=== PATIENT | male | born 1980 ===

== ENCOUNTER 2019-01-28 12:28 | Emergency (ER) | payer OTHER ==
[~2019-01-28] VITALS: Ht 175.3 cm; Wt 131.5 kg
[2019-01-28 12:44] VITALS: BP 161/56
[2019-01-28 12:45] VITALS: BP 161/56
[2019-01-28 12:46] VITALS: BP 161/56
--- NOTE | 2019-01-28 12:48 | NUR ---
ARRIVAL PATIENT ARRIVED TO ED7 VIA W/C WITH FAMILY, C/O OF LEFT GROIN PAIN TODAY, PATIENT STATES HE WOKE UP FROM A NAP AND STRETCHED AND FELT A POP, PAIN PERSISTED, WENT BACK TO SLEEP AND WHEN HE WOKE UP THE PAIN WAS WORSE, CAME TO THE ED FOR EVAL.
[2019-01-28] MEDS ORDERED: LACTATED RINGERS 1,000 ML IV STA (12:55)
[2019-01-28] MEDS ORDERED: TORADOL IV STA (12:55)
[2019-01-28] MEDS ORDERED: TYLENOL PO STA (12:55)
--- NOTE | 2019-01-28 13:00 | ER.PDOC ---
General Chief Complaint: Extremities Stated Complaint: LEFT GROIN INJURY Time seen by MD: 12:58 Source: patient Exam Limitations: no limitations History of Present Illness Initial Comments Left groin pain since this morning after he stretched. No fall. Severity/Quality: moderate Radiation: no radiation Associated Symptoms: denies symptoms Exacerbated by: nothing Relieved By: nothing Allergies: Coded Allergies: No Known Allergies (Unverified , 11/09/13) Home Meds No Active Prescriptions or Reported Meds Vital Signs First Vital Signs Date Time Temp Pulse Resp B/P (MAP) Pulse Ox O2 Delivery O2 Flow Rate FiO2 01/28/19 12:44 100.5 126 18 95 Room Air 01/28/19 12:46 161/56 (91) Last Vital Signs Date Time Temp Pulse Resp B/P (MAP) Pulse Ox O2 Delivery O2 Flow Rate FiO2 01/28/19 12:46 100.5 126 18 161/56 (91) 95 Room Air Past Medical History Medical History: no pertinent history Surgical History: no surgical history Social History Smoking: non-smoker Alcohol Use: none Drug Use: none Constitutional: no symptoms reported Respiratory: no symptoms reported Cardiovascular: no symptoms reported Gastrointestinal: no symptoms reported Genitourinary: no symptoms reported Musculoskeletal: see HPI All Other Systems: Reviewed and Negative Physical Exam General Appearance: No Apparent Distress, WD/WN, Obese Neck: Non-Tender, Full Range of Motion, Supple, Normal Inspection Respiratory: chest non-tender, lungs clear, normal breath sounds, no respiratory distress, no accessory muscle use Cardiovascular: Normal Peripheral Pulses, Regular Rate, Rhythm, No Edema, No Gallop, No JVD, No Murmur, Tachycardia Gastrointestinal: Normal Bowel Sounds, No Organomegaly, No Pulsatile Mass, Guarding, Tenderness (left inguinal area, no redness or erytherma) Back: Normal Inspection, No CVA Tenderness, No Vertebral Tenderness Extremities: Normal Range of Motion, Non-Tender, Normal Inspection, No Pedal Edema, No Calf Tenderness, Normal Capillary Refill, Pelvis Stable Neurologic/Psychiatric: condenser setter II-XII NML as Tested, No Motor/Sensory Deficits, Alert, Normal Mood/Affect, Oriented x 3 Skin: Normal Color, Warm/Dry Results/Orders Results/Orders Orders - ROSE TRIVEDI MD Cbc With Auto Diff (01/28/19 12:55) Comprehensive Metabolic Panel (01/28/19 12:55) Ct Abd/Pel With Iv Contrast (01/28/19 12:55) Urinalysis (01/28/19 12:55) Blood Culture (01/28/19 12:55) Lactic Acid(Ml) (01/28/19 12:55) Ketorolac Tromethamine (Toradol) (01/28/19 12:55) Ringer's Solution,Lactated (Lactated Rin (01/28/19 12:55) Acetaminophen (Tylenol) (01/28/19 12:55) Ringer's Solution,Lactated (Lactated Rin (01/28/19 13:16) Acetaminophen (Tylenol) (01/28/19 13:16) Ketorolac Tromethamine (Toradol) (01/28/19 13:16) Urine Culture (01/28/19 13:11) Vital Signs Date Time Temp Pulse Resp B/P (MAP) Pulse Ox O2 Delivery O2 Flow Rate FiO2 01/28/19 12:46 100.5 126 18 161/56 (91) 95 Room Air 01/28/19 12:45 100.6 126 18 01/28/19 12:44 100.5 126 18 95 Room Air Administered Medications Medications (Trade) Dose Ordered Sig/Orly Route PRN Reason Start Time Stop Time Status Last Admin Dose Admin Acetaminophen (Tylenol) 1,000 mg STAT STAT PO 01/28/19 12:55 01/28/19 12:58 DC 01/28/19 13:38 1,000 MG Ketorolac Tromethamine (Toradol) 30 mg STAT STAT IV 01/28/19 12:55 01/28/19 12:58 DC 01/28/19 13:39 30 MG Laboratory Tests Test 01/28/19 13:10 01/28/19 13:11 01/28/19 13:55 White Blood Count 13.3 10^3/uL (4.5-11.0) H Red Blood Count 6.12 10^6/uL (4.50-5.90) H Hemoglobin 17.5 g/dL (13.9-16.3) H Hematocrit 52.2 % (37.0-53.0) Mean Corpuscular Volume 85.3 fL (78-100) Mean Corpuscular Hemoglobin 28.6 pg (26-34) Mean Corpuscular Hemoglobin Concent 33.5 g/dL (33-37) Red Cell Distribution Width 12.9 % (11.5-14.5) Platelet Count 229 10^3/uL (150-400) Mean Platelet Volume 9.9 fL (7.8-11.0) Neutrophils (%) (Auto) 84.1 % (41.0-85.0) Lymphocytes (%) (Auto) 6.9 % (24.0-44.0) *L Monocytes (%) (Auto) 7.7 % (5.0-12.0) Neutrophils # (Auto) 11.2 10^3/uL (1.8-7.7) H Lymphocytes # (Auto) 0.9 10^3/uL (1.0-4.8) L Monocytes # (Auto) 1.0 10^3/uL (0.3-0.8) H Absolute Immature Granulocyte (auto 0.04 10^3 u/L (0-2) Immature Granulocytes % 0.30 % (0.00-0.50) Eosinophils % 0.8 % (0.0-5.0) Basophils % 0.2 % (0.0-0.2) Basophils # 0.0 10^3/uL (0.0-0.1) Eosinophil Count 0.1 10^3/uL (0.0-0.2) Sodium Level 138 mmol/L (132-145) Potassium Level 4.2 mmol/L (3.6-5.2) Chloride Level 103.0 mmol/L (96-109) Carbon Dioxide Level 29.4 mmol/L (20.0-32) Anion Gap 9.8 Blood Urea Nitrogen 18 mg/dL (7-18) Creatinine 1.27 mg/dL (0.59-1.40) Estimated GFR () 77.2 (>/=60) BUN/Creatinine Ratio 14.0 Glucose Level 122 mg/dL (70-110) H Calcium Level 8.7 mg/dL (8.4-10.5) Total Bilirubin 0.6 mg/dL (0.2-1.0) Aspartate Amino Transferase (AST) 42 U/L (0-35) H Alanine Aminotransferase (ALT) 106 U/L (12-78) H Alkaline Phosphatase 92 U/L (50-136) Total Protein 7.5 g/dL (6.4-8.2) Albumin 3.5 g/dL (3.4-5.0) Globulin 4.0 Urine Collection Type VOID Urine Color YELLOW (YELLOW) Urine Appearance SLIGHTLY HAZY (CLEAR) H Urine Bilirubin NEGATIVE MG/DL (NEGATIVE) Urine Ketones NEGATIVE (NEGATIVE) Urine Specific [place] 1.015 (1.005-1.035) Urine pH 5 (5.0-6.0) Urine Protein NEGATIVE (NEGATIVE) Urine Urobilinogen NORMAL (NEGATIVE) Urine Nitrate NEGATIVE (NEGATAIVE) Urine Leukocyte Esterase NEGATIVE (NEGATIVE) Urine Blood NEGATIVE (NEGATIVE) Urine RBC 0-2 RBC/HPF (NONE SEEN) Urine WBC 0-2 WBC/HPF (0-2) Urine Squamous Epithelial Cells RARE #/HPF (FEW) Urine Bacteria RARE (NONE SEEN) Urine Glucose NORMAL (NEGATIVE) Lactic Acid Level 1.8 mmol/L (0.50-2.00) Progress Progress CT abdomen/Pelvis: Hepatomegaly and hepatic steatosis. Otherwise unremarkable Discussed results with patient, CBC elevated from likely viremia or stress induced. Course Sepsis Screening Results: Posi: POSITIVE SEPSIS RISK Vitals & review Data Vital Sign - Last 24 Hours 01/28/19 01/28/19 01/28/19 12:44 12:45 12:46 Temp 100.5 100.6 100.5 Pulse 126 126 126 Resp 18 18 18 B/P (MAP) 161/56 (91) Pulse Ox 95 95 O2 Delivery Room Air Room Air Laboratory Tests Test 01/28/19 13:10 01/28/19 13:11 01/28/19 13:55 White Blood Count 13.3 10^3/uL Red Blood Count 6.12 10^6/uL Hemoglobin 17.5 g/dL Hematocrit 52.2 % Mean Corpuscular Volume 85.3 fL Mean Corpuscular Hemoglobin 28.6 pg Mean Corpuscular Hemoglobin Concent 33.5 g/dL Red Cell Distribution Width 12.9 % Platelet Count 229 10^3/uL Mean Platelet Volume 9.9 fL Neutrophils (%) (Auto) 84.1 % Lymphocytes (%) (Auto) 6.9 % Monocytes (%) (Auto) 7.7 % Neutrophils # (Auto) 11.2 10^3/uL Lymphocytes # (Auto) 0.9 10^3/uL Monocytes # (Auto) 1.0 10^3/uL Absolute Immature Granulocyte (auto 0.04 10^3 u/L Immature Granulocytes % 0.30 % Eosinophils % 0.8 % Basophils % 0.2 % Basophils # 0.0 10^3/uL Eosinophil Count 0.1 10^3/uL Sodium Level 138 mmol/L Potassium Level 4.2 mmol/L Chloride Level 103.0 mmol/L Carbon Dioxide Level 29.4 mmol/L Anion Gap 9.8 Blood Urea Nitrogen 18 mg/dL Creatinine 1.27 mg/dL Estimated GFR () 77.2 BUN/Creatinine Ratio 14.0 Glucose Level 122 mg/dL Calcium Level 8.7 mg/dL Total Bilirubin 0.6 mg/dL Aspartate Amino Transf (AST/SGOT) 42 U/L Alanine Aminotransferase (ALT/SGPT) 106 U/L Alkaline Phosphatase 92 U/L Total Protein 7.5 g/dL Albumin 3.5 g/dL Globulin 4.0 Urine Collection Type VOID Urine Color YELLOW Urine Appearance SLIGHTLY HAZY Urine Bilirubin NEGATIVE MG/DL Urine Ketones NEGATIVE Urine Specific [place] 1.015 Urine pH 5 Urine Protein NEGATIVE Urine Urobilinogen NORMAL Urine Nitrate NEGATIVE Urine Leukocyte Esterase NEGATIVE Urine Blood NEGATIVE Urine RBC 0-2 RBC/HPF Urine WBC 0-2 WBC/HPF Urine Squamous Epithelial Cells RARE #/HPF Urine Bacteria RARE Urine Glucose NORMAL Lactic Acid Level 1.8 mmol/L O2 Sat by Pulse Oximetry: 95 Departure Time of Disposition: 15:25 Disposition: 01 HOME, SELF-CARE Impression: Primary Impression: Left inguinal pain Additional Impressions: Muscle strain Viral illness Condition: Stable Referrals: PCP,UNKNOWN (PCP) PRIMARY CARE PROVIDER Additional Instructions: Tramadol Flexeril Ibuprofen F/U with PCP in 2-3 days Return if worsening symptoms or concerns. Scripts No Active Prescriptions or Reported Meds Duration or Time Spent with Pa: 60 mins Problem Qualifiers ROSE TRIVEDI MD Jan 28, 2019 13:00
[2019-01-28 13:16] LABS: BASOPHIL % 0.2 % (0.0-0.2); EOSINOPHIL # 0.1 10^3/uL (0.0-0.2); EOSINOPHIL % 0.8 % (0.0-5.0); HEMOGLOBIN 17.5 g/dL (13.9-16.3); LYMPHOCYTES # 0.9 10^3/uL (1.0-4.8); LYMPHOCYTES % 6.9 % (24.0-44.0); MEAN CELL HGB 28.6 pg (26-34); MEAN CELL HGB CONCENTRATION 33.5 g/dL (33-37); MEAN CORP VOLUME 85.3 fL (78-100); MEAN PLATELET VOLUME 9.9 fL (7.8-11.0); MONOCYTES % 7.7 % (5.0-12.0); NEUTROPHIL # 11.2 10^3/uL (1.8-7.7); NEUTROPHILS % 84.1 % (41.0-85.0); RED CELL DISTRIBUTION WIDTH 12.9 % (11.5-14.5); WHITE BLOOD CELL 13.3 10^3/uL (4.5-11.0)
[2019-01-28] MEDS ORDERED: TORADOL ONE (13:16)
[2019-01-28] MEDS ORDERED: TYLENOL PO ONE (13:16)
[2019-01-28] MEDS ORDERED: LACTATED RINGERS 1,000 ML ONE (13:16)
[2019-01-28 13:44] LABS: BILIRUBIN,URINE NEGATIVE (NEGATIVE); UA COLOR YELLOW (YELLOW); UROBILINOGEN,URINE NORMAL (NEGATIVE)
[2019-01-28 13:45] LABS: CALCIUM 8.7 mg/dL (8.4-10.5); CARBON DIOXIDE 29.4 mmol/L (20.0-32)
[2019-01-28 13:46] LABS: APPEARANCE,URINE SLIGHTLY HAZY (CLEAR)
--- NOTE | 2019-01-28 14:17 | NUR ---
CAT SCAN PATIENT TO AND FROM CAT SCAN WITH VIJI FROM RADIOLOGY.
--- NOTE | 2019-01-28 14:26 | DIREP ---
PROCEDURE:CT ABDOMEN/PELVIS W/ CONTRAST COMPARISON:None. INDICATIONS:Left inginal pain TECHNIQUE:Axial images were created through the abdomen and pelvis with non-ionic intravenous contrast material. No oral contrast was administered. The lack of oral contrast limits assessment of the bowel Sagittal and coronal reconstructions were performed from source images. FINDINGS: LUNG BASES:Normal. No visible pulmonary or pleural disease. LIVER:Hepatic steatosis. No visualized mass. Normal contour. BILIARY:Normal. No visible dilatation or calcification. PANCREAS:Normal. No lesion, fluid collection, ductal dilatation, or atrophy. SPLEEN:Normal. No enlargement or focal lesion. ADRENALS:Normal. No mass or enlargement. URINARY TRACT:Normal. No focal lesions or hydronephrosis. AORTA/VASCULAR:Normal. No aneurysm. RETROPERITONEUM:Normal. No mass or adenopathy. BOWEL/MESENTERY:Normal. There is no intestinal obstruction, free fluid, free air or mesenteric inflammatory changes. ABDOMINAL WALL:Normal. No mass or hernia. PELVIC ORGANS:Normal. No visible mass. Pelvic organs appropriate for patient age. BONES:Normal for age. No bony lesion or acute fracture. OTHER:Normal-appearing inguinal lymph nodes bilaterally.. CONCLUSION:Hepatomegaly and hepatic steatosis. Otherwise unremarkable Dictated by: Raj Dao DO on 01/28/2019 at 02:23 PM
[2019-01-28 15:39] VITALS: BP 104/56
[2019-01-28 21:36] LABS: BAND NEUTROPHILS 2 % (2-6); EOSINOPHIL 0 % (1-4); LYMPHOCYTE 9 % (25-36); MONOCYTE 5 % (3-9); SEGMENTED NEUTROPHILS 81 % (31-76)
[2019-01-28 21:38] LABS: BASOPHIL 1 % (0-2); NUCLEATED RED BLOOD CELLS 1 % (0-0); OTHER CELL TYPE 2
== END 2019-01-28 15:33 | disposition home or self-care (01) ==
LOC: ER 12:28
DX: S39.011A Strain of muscle, fascia and tendon of abdomen, initial encounter (principal); B34.9 Viral infection, unspecified; Z79.1 Long term (current) use of non-steroidal anti-inflammatories (NSAID); X58.XXXA Exposure to other specified factors, initial encounter; Y93.89 Activity, other specified; Y92.89 Other specified places as the place of occurrence of the external cause; Y99.8 Other external cause status
CPT/HCPCS: 36415; 74177; 80053; 81000; 83605; 85025; 87040 ×2; 87086; 96374; 99285; A9150; J1885; J7120; Q9965

== ENCOUNTER 2019-01-29 19:51 | Inpatient (IN) | payer OTHER ==
[~2019-01-29] VITALS: Ht 175.3 cm; Wt 133.4 kg
--- NOTE | 2019-01-29 20:20 | ER.PDOC ---
General Chief Complaint: Requesting Medical Care Stated Complaint: LEFT GROIN PAIN Time seen by MD: 20:19 Source: patient Exam Limitations: no limitations History of Present Illness Initial Comments Patient seen/evaluated here yesterday for "left groin strain". He denies injury or history of strain. Today, the left leg is red and warm with obvious discoloration and he has developed fever. Onset: yesterday Where: home Context: other (no history of strain or injury) Severity: moderate Allergies: Coded Allergies: No Known Allergies (Unverified , 11/09/13) Home Meds No Active Prescriptions or Reported Meds Past Medical History Medical History: no pertinent history Surgical History: no surgical history Family History Significant Family History: no pertinent family hx Social History Smoking: non-smoker Drug Use: none Review of Systems Constitutional: fever EENTM: no symptoms reported Respiratory: no symptoms reported Cardiovascular: no symptoms reported Gastrointestinal: no symptoms reported Musculoskeletal: no symptoms reported (no history of injury or strain) Skin: change in color (red/warm left thigh and left leg) Physical Exam General Appearance: Alert, No Apparent Distress Foot: nml inspection Ankle: nml inspection Thigh/Hip: tenderness (red/warm cellulitic region marked with sharpee--very large diameter region) 1 - cellulitis 2 - cellulitis Neuro/Vasc/Tendon: sensation nml, motor nml, no vascular compromise (brisk cap refill, DP/PT pulses palpated) Head/ENT: nml inspection Abdomen: non-tender Results/Orders Results/Orders Orders - ZAIRA GAMBLE DO Cbc With Auto Diff (01/29/19 20:29) Comprehensive Metabolic Panel (01/29/19 20:29) Blood Culture (01/29/19 20:29) 0.9 % Sodium Chloride (Ns 1000ml) (01/29/19 20:30) Piperacillin Sodium/Tazobactam (Zosyn 3. (01/29/19 20:29) Urinalysis (01/29/19 20:29) Cardiac Monitoring (01/29/19 20:29) Cont. Monitor O2 (01/29/19 20:29) Acetaminophen (Tylenol) (01/29/19 20:36) 0.9 % Sodium Chloride (Ns 1000ml) (01/29/19 20:38) Acetaminophen (Tylenol) (01/29/19 20:38) 0.9 % Sodium Chloride (Ns 50ml) (01/29/19 20:39) Vancomycin Hcl (Vancomycin Hcl) (01/29/19 22:30) 0.9 % Sodium Chloride (Ns 1000ml) (01/29/19 22:30) Ct Lt Low Extremity Wo (01/29/19 22:26) Vital Signs Date Time Temp Pulse Resp B/P (MAP) Pulse Ox O2 Delivery O2 Flow Rate FiO2 01/29/19 22:10 100.5 121 20 134/79 (97) 95 Room Air 01/29/19 21:47 120 18 132/75 (94) 96 Room Air 01/29/19 20:57 101.6 125 22 135/90 (105) 100 Room Air 01/29/19 20:21 102.0 131 24 120/87 (98) Room Air 01/29/19 20:21 102.0 131 24 97 Room Air 01/29/19 20:21 102.0 131 24 Administered Medications Medications (Trade) Dose Ordered Sig/Orly Route PRN Reason Start Time Stop Time Status Last Admin Dose Admin Acetaminophen (Tylenol) 1,000 mg STAT STAT PO 01/29/19 20:36 01/29/19 20:37 DC 01/29/19 20:43 1,000 MG Piperacillin Sod/ Tazobactam Sod 3.375 gm/Sodium Chloride 100 ml @ 100 mls/hr STAT STAT IV 01/29/19 20:29 01/29/19 21:28 DC 01/29/19 20:42 100 MLS/HR Sodium Chloride 1,000 ml @ 0 mls/hr Q0M ONCE IV 01/29/19 20:30 01/29/19 20:36 DC 01/29/19 20:43 0 MLS/HR Laboratory Tests Test 01/29/19 20:43 01/29/19 20:59 01/29/19 21:45 White Blood Count 15.7 10^3/uL (4.5-11.0) H Red Blood Count 5.39 10^6/uL (4.50-5.90) Hemoglobin 15.5 g/dL (13.9-16.3) Hematocrit 46.8 % (37.0-53.0) Mean Corpuscular Volume 86.8 fL (78-100) Mean Corpuscular Hemoglobin 28.8 pg (26-34) Mean Corpuscular Hemoglobin Concent 33.1 g/dL (33-37) Red Cell Distribution Width 13.0 % (11.5-14.5) Platelet Count 208 10^3/uL (150-400) Mean Platelet Volume 9.7 fL (7.8-11.0) Neutrophils (%) (Auto) 91.1 % (41.0-85.0) *H Lymphocytes (%) (Auto) 4.4 % (24.0-44.0) *L Monocytes (%) (Auto) 3.2 % (5.0-12.0) L Neutrophils # (Auto) 14.3 10^3/uL (1.8-7.7) H Lymphocytes # (Auto) 0.7 10^3/uL (1.0-4.8) L Monocytes # (Auto) 0.5 10^3/uL (0.3-0.8) Absolute Immature Granulocyte (auto 0.18 10^3 u/L (0-2) Immature Granulocytes % 1.20 % (0.00-0.50) H Eosinophils % 0.0 % (0.0-5.0) Basophils % 0.1 % (0.0-0.2) Basophils # 0.0 10^3/uL (0.0-0.1) Eosinophil Count 0.0 10^3/uL (0.0-0.2) Sodium Level 132 mmol/L (132-145) Potassium Level 3.9 mmol/L (3.6-5.2) Chloride Level 97.0 mmol/L (96-109) Carbon Dioxide Level 28.5 mmol/L (20.0-32) Anion Gap 10.4 Blood Urea Nitrogen 18 mg/dL (7-18) Creatinine 1.55 mg/dL (0.59-1.40) H Estimated GFR () 61.4 (>/=60) BUN/Creatinine Ratio 11.0 Glucose Level 156 mg/dL (70-110) H Calcium Level 8.6 mg/dL (8.4-10.5) Total Bilirubin 1.0 mg/dL (0.2-1.0) Aspartate Amino Transferase (AST) 33 U/L (0-35) Alanine Aminotransferase (ALT) 85 U/L (12-78) H Alkaline Phosphatase 77 U/L (50-136) Total Protein 7.7 g/dL (6.4-8.2) Albumin 2.9 g/dL (3.4-5.0) L Globulin 4.8 Differential Total Cells Counted 100 #CELLS Segmented Neutrophils 83 % (31-76) H Band Neutrophils 5 % (2-6) Lymphocytes 6 % (25-36) L Monocytes 5 % (3-9) Metamyelocytes 1 % Platelet Estimate ADEQUATE Platelet Morphology NORMAL Blood Morphology Comment NORMAL MORPHOLOGY Urine Collection Type Pending Urine Color Pending Urine Appearance Pending Urine Bilirubin NEGATIVE MG/DL (NEGATIVE) Urine Ketones 5 mg/dL (NEGATIVE) H Urine Specific [place] 1.020 (1.005-1.035) Urine pH 6 (5.0-6.0) Urine Protein 100 mg/dL (NEGATIVE) H Urine Urobilinogen 1.0 (NEGATIVE) H Urine Nitrate NEGATIVE (NEGATAIVE) Urine Leukocyte Esterase NEGATIVE (NEGATIVE) Urine Blood 50 2+ (NEGATIVE) H Urine Glucose 50 (NEGATIVE) H Progress Progress patient appears to be in early stages of sepsis; no evidence of nec fac at time of this exam. Dr. Knapp agrees to admit patient. Vanc and Zosyn given in ED. Consult/PCP Time Consult/PCP Called: 22:30 Consult/PCP: Dr. Knapp will admit Departure Time of Disposition: 22:31 Disposition: 09 ADMITTED INPATIENT Impression: Primary Impression: Cellulitis Additional Impression: Sepsis Condition: Stable Referrals: PCP,UNKNOWN (PCP) PRIMARY CARE PROVIDER Scripts No Active Prescriptions or Reported Meds Duration or Time Spent with Pa: 1 hr 15 min Problem Qualifiers ZAIRA GAMBLE DO Jan 29, 2019 20:20
[2019-01-29 20:21] VITALS: BP 120/87
[2019-01-29] MEDS ORDERED: ZOSYN 3.375 GM 3.375 GM in NS 100ML 100 ML IV STA (20:29)
[2019-01-29] MEDS ORDERED: NS 1000ML 1,000 ML ONE ×2 (20:30→20:38)
[2019-01-29] MEDS ORDERED: TYLENOL PO STA (20:36)
[2019-01-29] MEDS ORDERED: TYLENOL PO ONE (20:38)
[2019-01-29] MEDS ORDERED: NS 50ML 50 ML IV ONE (20:39)
[2019-01-29 20:53] LABS: BASOPHIL % 0.1 % (0.0-0.2); LYMPHOCYTES # 0.7 10^3/uL (1.0-4.8); LYMPHOCYTES % 4.4 % (24.0-44.0); MEAN CORP HGB 28.8 pg (26-34); MONOCYTES # 0.5 10^3/uL (0.3-0.8); MONOCYTES % 3.2 % (5.0-12.0); NEUTROPHIL # 14.3 10^3/uL (1.8-7.7); NEUTROPHILS % 91.1 % (41.0-85.0)
[2019-01-29 20:57] VITALS: BP 135/90
[2019-01-29 21:09] LABS: CALCIUM 8.6 mg/dL (8.4-10.5); CARBON DIOXIDE 28.5 mmol/L (20.0-32)
[2019-01-29 21:45] LABS: BAND NEUTROPHILS 5 % (2-6); LYMPHOCYTE 6 % (25-36); MONOCYTE 5 % (3-9); SEGMENTED NEUTROPHILS 83 % (31-76)
[2019-01-29 21:47] VITALS: BP 132/75
[2019-01-29 22:10] VITALS: BP 134/79
[2019-01-29 22:19] LABS: BILIRUBIN,URINE NEGATIVE (NEGATIVE)
[2019-01-29 22:28] LABS: APPEARANCE,URINE CLOUDY (CLEAR); UA COLOR DARK YELLOW (YELLOW)
[2019-01-29 22:30] VITALS: BP 131/72
[2019-01-29] MEDS ORDERED: NS 1000ML 1,000 ML IV ONE (22:30)
[2019-01-29] MEDS ORDERED: VANCOMYCIN HCL 1 GM in NS 250ML 250 ML IV ONE (22:30)
[2019-01-29] MEDS ORDERED: NS 250ML 250 ML IV ONE (22:32)
[2019-01-29] MEDS ORDERED: VANCOMYCIN HCL 1 GM ONE (22:33)
[2019-01-29] MEDS ORDERED: VANCOMYCIN IV SCH (23:00)
[2019-01-29] MEDS ORDERED: NS IV SCH (23:00)
--- NOTE | 2019-01-29 23:03 | NUR ---
DR. Knapp at bedside
--- NOTE | 2019-01-29 23:05 | DIREP ---
PROCEDURE:CT LOWER EXTREMITY-LT W/O COMPARISON:None. INDICATIONS:infection TECHNIQUE:Axial sections through the left lower extremity were performed with sagittal and coronal reconstructions from source images. No contrast was administered. FINDINGS: BONES:Normal. JOINTS:Normal SOFT TISSUES:Multiple prominent and 1 enlarged left inguinal lymph node measuring 1.8 cm short axis. There is subcutaneous edema diffusely involving the left lower extremity without focal fluid collection identified. A prominent popliteal lymph node is also identified measures 1 cm short axis. The skin at the left anterior proximal and medial thigh does appear thickened which may suggest associated cellulitis. OTHER:No radiopaque foreign body. No soft tissue gas. Noncontrast examination. CONCLUSION: 1. Extensive subcutaneous edema and areas of skin thickening compatible with cellulitis. No focal collection identified to suggest abscess. No soft tissue gas. Dictated by: Nathalie Fournier MD on 01/29/2019 at 11:01 PM
[2019-01-29 23:11] LABS: ABG PCO2 36.2 mmHg (35.0-45.0); ABG PH 7.411 (7.350-7.450); BE(B) -1.5 mmol/L (-2.0-2.0); HCO3act 22.5 mmol/L (22.0-26.0); pO2 70.1 mmHg (80.0-100.0)
--- NOTE | 2019-01-29 23:21 | PCM.EKG ---
[facility] Test Date: 2019-01-29 Test Time: 23:19:11 Pat Name: SORAIDA WYATT Department: Room: 335 Gender: M Checking Department Supervisor: RT : 1980 Requested By: ZAIRA ALFONSO Order Number: [id number] Reading MD: Richelle Alfonso Measurements Intervals [place] Rate: 121 P: 67 CO: 134 QRS: 86 QRSD: 87 T: 10 QT: 320 QTc: 454 Interpretive Statements Sinus tachycardia No previous ECG available for comparison Electronically Signed On 03-05-2019 14:33:22 EAR NOSE THROAT SURGEON by Richelle Alfonso Please click the below link to view image of tracing.
--- NOTE | 2019-01-29 23:24 | DIREP ---
PROCEDURE:CHEST 1 VIEW COMPARISON:None. INDICATIONS:sepsis protocol FINDINGS: LUNGS/PLEURA:No confluent pulmonary infiltrate. No effusions. No pneumothorax. VASCULATURE:Unremarkable pulmonary vasculature. CARDIAC:No cardiac silhouette abnormality or cardiomegaly. MEDIASTINUM:No visible mass or adenopathy. BONES:No fracture or visible bony lesion. OTHER:Negative. CONCLUSION: 1. Unremarkable chest radiograph. Dictated by: Nathalie Fournier MD on 01/29/2019 at 11:23 PM
[2019-01-30 00:18] VITALS: BP 111/81
--- NOTE | 2019-01-30 01:57 | NUR ---
TELEPHONE REPORT RECEIVED FROM CORA OROPEZA.
--- NOTE | 2019-01-30 02:50 | NUR ---
ARRIVAL TO ROOM 312: PT ARRIVED FROM ER ACCOMPANIED BY ALBERTO SPARROW RN AND SPOUSE VIA WHEELCHAIR. PT TRANSFERRED SELF FROM WHEELCHAIR TO BED. PT ORIENTED TO HOSPITAL ROOM. NS BOLUS INFUSING TO 20G IV SITE IN RT AC. LT LOWER EXTREMITY ELEVATED ON 2 PILLOWS. CALL LIGHT AND TABLE WITHIN REACH. BED IN LOW POSITION, LOCKED, HOB ELEVATED AND SIDE RAILS UP X2. WILL CONTINUE TO MONITOR.
[2019-01-30 02:54] VITALS: BP 153/101
--- NOTE | 2019-01-30 03:41 | DIREP ---
PROCEDURE:US DUPLEX EXTREM VEINS UNILATER/LIMITED-LT COMPARISON:[facility], CT, CT LOWER EXTREMITY-LT W/O, 01/29/2019, 10:37 PM. INDICATIONS:rule out DVT, Pain/Swelling Lt LE x 2 Days TECHNIQUE:The left lower extremity was evaluated utilizing moon scale images with segmental compression, color Doppler, and spectral Doppler with respiratory variation and augmentation. FINDINGS: Common femoral vein:Patent Profunda femoris vein: Not evaluated. Superficial femoral vein:Evaluated with color Doppler only, incomplete compression views. Popliteal vein:Evaluated with color Doppler only, incomplete compression views. Posterior tibial vein:Patent Saphenous femoral junction vein:Limited assessment. Waveforms: Within normal limits. The noncontrast CT on this patient was also reviewed given limitations on this US examination. No obvious expansion of the veins and no stranding immediately adjacent to the vessels to suggest underlying clot on a noncontrast exam. Acknowledging, noncontrast CT does not adequately assess the veins of the extremity but there are no secondary features seen on the recent CT. CONCLUSION: 1. No DVT identified in the left lower extremity but this exam is incomplete. Recommend repeating this ultrasound in entirety. Patient renal function precludes CT with contrast. This report was called by telephone at 3:40 am on January 30, [address] Gely Alfonso. Dictated by: Nathalie Fournier MD on 01/30/2019 at 03:24 AM
[2019-01-30] MEDS ORDERED: NS 100ML 100 ML IV ONE (03:44)
[2019-01-30] MEDS ORDERED: LOVENOX SQ STA (03:48)
[2019-01-30] MEDS ORDERED: ZOSYN 3.375 GM 3.375 GM in NS 100ML 100 ML IV SCH ×3 (04:00)
[2019-01-30 06:24] LABS: MEAN CORP HGB 29.1 pg (26-34)
--- NOTE | 2019-01-30 06:27 | NUR ---
REPORT TO SHAN DRAPER LVN. PT CARE RELINQUISHED.
[2019-01-30] MEDS ORDERED: MORPHINE SULFATE IV PRN ×2 (06:30→08:00)
[2019-01-30 06:36] LABS: CALCIUM 8.3 mg/dL (8.4-10.5); CARBON DIOXIDE 26.4 mmol/L (20.0-32)
--- NOTE | 2019-01-30 07:53 | PCM.HP ---
History of Present Illness Reason for Visit: LLE pain/swelling/fever History of Present Illness Patient is a 38 M no significant PMH presents with redness/swelling/pain of LLE from upper thigh to LLE. Patient presented one day earlier following groin injury while stretching. Patient was d/c from ER after negative CT LLE. No cellulitis symptoms present on January 28 but patient was severe symptoms in ER 01/29. Patient was found to be septic and started on aggressive volume resuscitation and IV abx. Blood/urine cx ordered. Patient also had US LLE in ER that was not complete study so will be repeated this AM. Patient was given therapeutic Lovenox until quality US could be obtained. Patient pain remains moderate but he is feeling better. Infection is no longer spreading. CT scan negative for abscess or subcutaneous gas. Labs, imaging reviewed. Patient complaining of insomnia. Pain medication increased for better pain control. I discussed plan of care with patient and he verbalized understanding/agreement. Past Surgical History: No pertinent hx Past Social History Smoke: No Alcohol: occassional Drugs: None Lives: with Family Travel Hx EBOLA RISK:Travel to/contact w: No Is pt experiencing any Ebola s: No Review of Systems Constitutional: Fever, Chills Eyes: No: Conjunctivae inflammation, Eyelid inflammation ENT: No: Nose discharge, Nose congestion Respiratory: No: Cough, Shortness of breath, SOB with excertion, Wheezing Cardiovascular: Edema; No: Chest Pain, Palpitations Gastrointestinal: No: Nausea, Vomiting, Abdominal Pain Genitourinary: No Incontinence, No Retention Musculoskeletal: leg pain; No: neck pain, back pain Skin: Rash, Lesions; No: Jaundice, Bruising Neurological: No: Weakness, Numbness, Incoordination, Change in speech, Confusion, Seizures Allergies: Coded Allergies: No Known Allergies (Unverified , 11/09/13) No Active Prescriptions or Reported Meds VTE VTE Risk Total Score: 2 VTE Risk Score VTE Risk: Score 0-1 = Low Risk (Aggressive mobilization; early ambulation; no VTE prophylaxis required) Score 2: Moderate Risk (Intermittent/Pneumatic Compression Device OR Lovenox/Heparin/Coumadin) Score 3-4: High Risk (Intermittent/Pneumatic Compression Device AND Lovenox/Heparin/Coumadin) Score > or =5: Highest Risk (Intermittent/Pneumatic Compression Device AND Lovenox/Heparin/Coumadin) VTE VTE Present on Admission: No Currently receiving anticoagul: No VTE Risk Total Score: 2 Exam Vital Signs Vital Signs Date Time Temp Pulse Resp B/P (MAP) Pulse Ox O2 Delivery O2 Flow Rate FiO2 01/30/19 03:08 Room Air 01/30/19 02:54 100.6 124 18 153/101 (118) 100 General Appearance: Alert, Oriented X3, Cooperative HEENT: Atraumatic, PERRLA, EOMI, Mucous membr. moist/pink Respiratory: Clear to auscultation, Normal air movement Cardiovascular: Normal S1, Normal S2, No murmurs Abdominal: Normal bowel sounds, Soft, No tenderness Extremities: Other (LLE cellulitis from posterior/anterior upper thigh to distal tibia distally. No compartment syndrome. Patient neurovascularly intact.) Skin: Other (Cellulitis of LLE) Neuro: Normal speech, Strength at 5/5 X4 ext, Normal tone, Sensation intact, Cranial nerves 3-12 NL Psych/Mental Status: Mental status NL, Mood NL Assessment/Plan Assessment/Plan Assessment/Plan Patient is a 38 M no significant PMH presents with redness/swelling/pain of LLE from upper thigh to LLE. Patient History: Patient reports no known family medical history. Plan 1. Severe Sepsis/Cellulitis: cont IVF, IV abx. Blood/urine cx pending. Symptoms improving. Quality US pending. Therapeutic Lovenox continued until US rules out DVT. Procal elevated. Pending lactic acid. 2. Hyperglycemia: HgA1C pending. No current treatment. 3. KARISHMA: 2/2 ATN/Sepsis and possibly IV contrast induced Nephropathy from CT on 01/28. Resolved with IVF. Cont volume resuscitation. 4. PPx: PPI, Lovenox ILA BARILLAS MD Jan 30, 2019 07:53
[2019-01-30] MEDS: LACTATED RINGERS 1,000 ML IV SCH ×2 (08:00→10:18)
[2019-01-30 08:05] VITALS: BP 150/102
--- NOTE | 2019-01-30 08:11 | NUR ---
STAT EKG ORDERED AT THIS TIME FOR TELEMETRY READING OF ST [address]. AWARE. WILL CONTINUE TO MONITOR.
[2019-01-30] MEDS ORDERED: ZOFRAN 4 MG/2 ML VIAL ONE (08:21)
--- NOTE | 2019-01-30 08:23 | PCM.EKG ---
[facility] Test Date: 2019-01-30 Test Time: 08:17:43 Pat Name: SORAIDA WYATT Department: Room: 335 Gender: M Engineering Operator: ESTRADA : 1980 Requested By: ILA BARILLAS Order Number: [id number] Reading MD: Ila Barillas Measurements Intervals [place] Rate: 126 P: 78 SD: 135 QRS: 80 QRSD: 87 T: 23 QT: 307 QTc: 445 Interpretive Statements Sinus tachycardia No previous ECG available for comparison Electronically Signed On 02-02-2019 1:02:00 [employer]ENCE E[employer] by Ila Barillas Please click the below link to view image of tracing.
[2019-01-30] MEDS: PROTONIX PO SCH (08:27)
[2019-01-30] MEDS: TYLENOL PO PRN ×2 (08:27→14:31)
[2019-01-30] MEDS: ZOSYN 3.375 GM 3.375 GM in NS 100ML 100 ML IV SCH ×3 (10:18→22:15)
--- NOTE | 2019-01-30 10:20 | NUR ---
DISCHARGE PLAN CASE MANAGEMENT VISITED WITH PATIENT AND CONCERNING DISCHARGE PLAN AND NEEDS. LIVES AT HOME WITH AND FOUR CHILDREN IN [place]. HE WAS IN TOWN VISITING FOR THE HOLIDAY. INDEPENDENT OF ADLS. WORKS DAILY ON [employer] IN [place]. PCP IS PEE AT [facility] IN [place], [place] PHONE NUMBER . VERBALLY DENIES NEED FOR OUTPATIENT SERVICES OR HOME OXYGEN. HAS DME INCLUDING A NEBULIZER. HAS FINANCIAL ABILITY TO PAY FOR MEDICATIONS UPON DISCHARGE IF NEEDED. CM LEFT CONTACT INFORMATION AT BEDSIDE IF ASSISTANCE IS NEEDED. DISCHARGE GOAL IS TO DISCHARGE HOME WITH TO [place] AND CONTINUE SELF CARE. CM WILL CONTINUE TO FOLLOW FOR DISCHARGE NEEDS.
[2019-01-30] MEDS: VANCOMYCIN HCL 1 GM in NS 250ML 250 ML IV SCH ×2 (11:32→21:12)
[2019-01-30 13:14] VITALS: BP 144/88
--- NOTE | 2019-01-30 13:48 | DIREP ---
PROCEDURE:US DUPLEX EXTREM VEINS UNILATER/LIMITED-LT COMPARISON:[facility], , DUPLEX EXTREM VEINS UNILATER/LIMITED-LT, 01/30/2019, 01:32 AM. INDICATIONS:LLE edema, REDNESS TECHNIQUE:The left lower extremity was evaluated utilizing moon scale images with segmental compression, color Doppler, and spectral Doppler with respiratory variation and augmentation. FINDINGS: External iliac vein: Patent Common femoral vein:Patent Profunda femoris vein: Patent Superficial femoral vein:Patent Popliteal vein:Patent Posterior tibial vein:Patent Peroneal vein: Patent Greater saphenous vein:Patent Waveforms: Within normal limits. Edema in the subcutaneous soft tissues. Nonspecific lymph node with fatty hilum near the groin. CONCLUSION:No visible DVT. There is subcutaneous edema, correlate for cellulitis or nonspecific edema. Dictated by: Ronni Zayas M.D. on 01/30/2019 at 01:41 PM
[2019-01-30] MEDS: NORCO 7.5MG PO PRN (19:13)
[2019-01-30] MEDS: MORPHINE SULFATE IV PRN (19:14)
--- NOTE | 2019-01-30 20:03 | NUR ---
when taking pt's vital signs his oxygen was 84%, pt was placed on oxygen at 2 liters, RT notified. orders for Oxygen placed and continuous pluse ox. will notify Dr. quiroz.
--- NOTE | 2019-01-30 20:21 | NUR ---
received new orders to d/c fluids, get stat chest x-ray and to order incentive spirometer.
[2019-01-30 20:26] VITALS: BP_SYST 144; BP_SYST 148; BP_DIAS 78; BP_DIAS 88
--- NOTE | 2019-01-30 20:50 | NUR ---
pt off floor with radiology receiving chest-ray. will have to start vanco when he returns to room
[2019-01-30] MEDS ORDERED: MOTRIN PO STA (21:20)
--- NOTE | 2019-01-30 21:20 | DIREP ---
PROCEDURE:CHEST 2 VIEWS COMPARISON:None. INDICATIONS:drop in o2 stats FINDINGS: LUNGS/PLEURA:No significant pulmonary parenchymal abnormalities. No effusions. VASCULATURE:Normal. Unremarkable pulmonary vasculature. CARDIAC:Normal. No cardiac silhouette abnormality or cardiomegaly. MEDIASTINUM:Normal. No visible mass or adenopathy. BONES:Normal. No fracture or visible bony lesion. OTHER:Negative. CONCLUSION: 1. Normal chest. Dictated by: Rene Garcia M.D. on 01/30/2019 at 09:19 PM
[2019-01-30] MEDS: AMBIEN PO PRN (23:57)
[2019-01-30] MEDS ORDERED: MOTRIN ONE (23:59)
[2019-01-31 00:54] VITALS: BP 138/91
[2019-01-31] MEDS: VANCOMYCIN HCL 1 GM in NS 250ML 250 ML IV SCH ×3 (03:42→19:40)
[2019-01-31] MEDS: ZOSYN 3.375 GM 3.375 GM in NS 100ML 100 ML IV SCH ×4 (04:52→22:19)
[2019-01-31 05:55] LABS: BASOPHIL % 0.1 % (0.0-0.2); EOSINOPHIL % 0.4 % (0.0-5.0); LYMPHOCYTES # 0.8 10^3/uL (1.0-4.8); LYMPHOCYTES % 8.9 % (24.0-44.0); MONOCYTES # 0.6 10^3/uL (0.3-0.8); MONOCYTES % 6.5 % (5.0-12.0); NEUTROPHIL # 7.5 10^3/uL (1.8-7.7); NEUTROPHILS % 83.8 % (41.0-85.0); RED CELL DISTRIBUTION WIDTH 13.3 % (11.5-14.5)
[2019-01-31 06:21] LABS: CALCIUM 8.4 mg/dL (8.4-10.5); CARBON DIOXIDE 28.4 mmol/L (20.0-32)
[2019-01-31 06:23] LABS: CHOLESTEROL 129 mg/dL (120-240); HDL CHOLESTEROL 8 mg/dL (32-96)
[2019-01-31] MEDS: NORCO 7.5MG PO PRN ×2 (07:50→13:31)
[2019-01-31 08:05] VITALS: BP 159/78
[2019-01-31 08:11] LABS: HEP A AB, IgM Negative (Negative)
[2019-01-31] MEDS: LOVENOX SQ SCH ×3 (09:00→09:15)
[2019-01-31] MEDS: PROTONIX PO SCH (09:03)
[2019-01-31] MEDS: MORPHINE SULFATE IV PRN (09:16)
--- NOTE | 2019-01-31 09:52 | PRM.PN ---
Subjective Subjective Date: Jan 31, 2019 Time: 09:30 Subjective Patient improving. Some worsening of skin changes but warmth/redness improving. Labs, imaging reviewed. Patient has RITCHIE and offerred CPAP overnight but patient refused. He is hypoxic when he is sleeping and heavy snoring with day time hypersomnolence. Patient History: Patient reports no known family medical history. VTE VTE Risk Total Score: 2 VTE Risk Score VTE Risk: Score 0-1 = Low Risk (Aggressive mobilization; early ambulation; no VTE prophylaxis required) Score 2: Moderate Risk (Intermittent/Pneumatic Compression Device OR Lovenox/Heparin/Coumadin) Score 3-4: High Risk (Intermittent/Pneumatic Compression Device AND Lovenox/Heparin/Coumadin) Score > or =5: Highest Risk (Intermittent/Pneumatic Compression Device AND Lovenox/Heparin/Coumadin) Review of Systems Allergies: Coded Allergies: No Known Allergies (Unverified , 11/09/13) No Active Prescriptions or Reported Meds Objective Vitals and I/O Vital Sign - Last 24 Hours 01/30/19 01/30/19 01/30/19 01/30/19 13:14 17:34 19:45 20:26 Temp 98.9 97.4 Pulse 120 106 102 Resp 20 16 20 B/P (MAP) 144/88 (106) 148/78 (101) Pulse Ox 93 94 93 O2 Delivery Room Air Room Air Nasal Cannula Nasal Canula O2 Flow Rate 2.00 2.00 01/30/19 01/31/19 01/31/19 01/31/19 22:56 00:54 02:28 03:24 Temp 98.1 Pulse 95 Resp 20 20 B/P (MAP) 138/91 (107) Pulse Ox 92 75 75 O2 Delivery Nasal Cannula Nasal Canula Room Air O2 Flow Rate 2.00 2.00 FiO2 21 01/31/19 01/31/19 07:12 08:05 Temp 99.3 Pulse 89 Resp 20 B/P (MAP) 159/78 (105) Pulse Ox 93 O2 Delivery Nasal Cannula Room Air O2 Flow Rate 2.00 Intake and Output 01/30/19 01/30/19 01/31/19 15:00 23:00 07:00 Intake Total 334 ml 362 ml Output Total 1290 ml 850 ml Balance -956 ml -488 ml General: Alert, Oriented X3, Cooperative HEENT: Atraumatic, PERRLA, EOMI, Mucous membr. moist/pink Neck: Supple, No JVD Lungs: Clear to auscultation, Normal air movement Heart: Normal S1, Normal S2, No murmurs Abdomen: Normal bowel sounds, Soft, No tenderness Extremities: Other (LLE cellulitis from posterior/anterior upper thigh to distal tibia distally. No compartment syndrome. Patient neurovascularly intact.) Skin: Other (Cellulitis LLE, improving. Mild bullae on lower leg. ) Neuro: Normal speech, Strength at 5/5 X4 ext, Normal tone, Sensation intact, Cranial nerves 3-12 NL Psych/Mental Status: Mental status NL, Mood NL All Results(Lab/Rad) Laboratory Tests Test 01/30/19 10:46 01/30/19 16:34 01/31/19 05:21 Lactic Acid Level 1.3 mmol/L Vancomycin Level Trough 12.6 ug/mL White Blood Count 8.9 10^3/uL Red Blood Count 4.87 10^6/uL Hemoglobin 14.1 g/dL Hematocrit 42.7 % Mean Corpuscular Volume 87.7 fL Mean Corpuscular Hemoglobin 29.0 pg Mean Corpuscular Hemoglobin Concent 33.0 g/dL Red Cell Distribution Width 13.3 % Platelet Count 195 10^3/uL Mean Platelet Volume 10.4 fL Neutrophils (%) (Auto) 83.8 % Lymphocytes (%) (Auto) 8.9 % Monocytes (%) (Auto) 6.5 % Neutrophils # (Auto) 7.5 10^3/uL Lymphocytes # (Auto) 0.8 10^3/uL Monocytes # (Auto) 0.6 10^3/uL Absolute Immature Granulocyte (auto 0.03 10^3 u/L Immature Granulocytes % 0.30 % Eosinophils % 0.4 % Basophils % 0.1 % Basophils # 0.0 10^3/uL Eosinophil Count 0.0 10^3/uL Sodium Level 135 mmol/L Potassium Level 3.6 mmol/L Chloride Level 99.0 mmol/L Carbon Dioxide Level 28.4 mmol/L Anion Gap 11.2 Blood Urea Nitrogen 13 mg/dL Creatinine 1.17 mg/dL Estimated GFR () 84.9 BUN/Creatinine Ratio 11.0 Glucose Level 170 mg/dL Hemoglobin A1c 5.9 % Calcium Level 8.4 mg/dL Total Bilirubin 0.5 mg/dL Aspartate Amino Transf (AST/SGOT) 22 U/L Alanine Aminotransferase (ALT/SGPT) 56 U/L Alkaline Phosphatase 69 U/L Total Protein 7.3 g/dL Albumin 2.3 g/dL Globulin 5.0 Triglycerides Level 552 mg/dL Cholesterol Level 129 mg/dL LDL Cholesterol, Calculated VLDL Cholesterol HDL Cholesterol 8 mg/dL Cholesterol Ratio (LDL/HDL) Current Medications Medications (Trade) Dose Ordered Sig/Orly Route PRN Reason Start Time Stop Time Status Last Admin Dose Admin Sodium Chloride 1,000 ml @ 0 mls/hr Q0M ONCE IV 01/29/19 20:30 01/29/19 20:36 DC 01/29/19 20:43 Piperacillin Sod/ Tazobactam Sod 3.375 gm/Sodium Chloride 100 ml @ 100 mls/hr STAT STAT IV 01/29/19 20:29 01/29/19 21:28 DC 01/29/19 20:42 Acetaminophen (Tylenol) 1,000 mg STAT STAT PO 01/29/19 20:36 01/29/19 20:37 DC 01/29/19 20:43 Sodium Chloride 1,000 ml @ ud STK-MED ONCE .ROUTE 01/29/19 20:38 01/29/19 20:39 DC Acetaminophen (Tylenol) 500 mg STK-MED ONCE PO 01/29/19 20:38 01/29/19 20:40 DC Sodium Chloride 50 ml @ ud STK-MED ONCE IV 01/29/19 20:39 01/29/19 20:41 DC Vancomycin HCl 1 gm/Sodium Chloride 250 ml @ 175 mls/hr STAT ONCE IV 01/29/19 22:30 01/30/19 08:39 DC 01/29/19 22:57 Sodium Chloride 1,000 ml @ 0 mls/hr Q0M ONCE IV 01/29/19 22:30 01/30/19 08:39 DC 01/29/19 22:57 Sodium Chloride 250 ml @ ud STK-MED ONCE IV 01/29/19 22:32 01/29/19 22:34 DC Vancomycin HCl 1 ml @ ud STK-MED ONCE .ROUTE 01/29/19 22:33 01/29/19 22:34 DC Vancomycin HCl 1950 mg/Sodium Chloride 100 ml @ 100 mls/hr Q12HR IV 01/29/19 23:00 01/30/19 03:59 DC Piperacillin Sod/ Tazobactam Sod 3.375 gm/Sodium Chloride 100 ml @ 100 mls/hr Q6 IV 01/30/19 00:00 01/30/19 03:59 DC Sodium Chloride 100 ml @ ud STK-MED ONCE IV 01/30/19 03:44 01/30/19 03:46 DC Piperacillin Sod/ Tazobactam Sod 3.375 gm/Sodium Chloride 100 ml @ 100 mls/hr Q6 IV 01/30/19 04:00 01/30/19 10:01 DC 01/30/19 04:00 Vancomycin HCl 1 gm/Sodium Chloride 250 ml @ 175 mls/hr Q8H IV 01/30/19 11:00 03/01/19 10:59 01/31/19 03:42 Enoxaparin Sodium (Lovenox) 100 mg STAT STAT SQ 01/30/19 03:48 01/30/19 08:39 DC 01/30/19 04:10 Morphine Sulfate (Morphine Sulfate) 1 mg Q3HR PRN IV PAIN 4 - 6 01/30/19 06:30 01/30/19 07:44 DC Pantoprazole Sodium (Protonix) 40 mg DAILY PO 01/30/19 09:00 03/01/19 08:59 01/31/19 09:03 Acetaminophen (Tylenol) 650 mg Q6HR PRN PO FEVER 01/30/19 08:00 03/01/19 07:59 01/30/19 14:31 Morphine Sulfate (Morphine Sulfate) 2 mg Q3HR PRN IV PAIN 7 - 10 01/30/19 08:00 01/30/19 10:15 DC 01/30/19 08:26 Acetaminophen/ Hydrocodone Bitart (Coldiron 7.5mg) 1 each Q4HR PRN PO PAIN 4 - 6 01/30/19 08:00 03/01/19 07:59 01/31/19 07:50 Zolpidem Tartrate (Ambien) 5 mg HS PRN PO INSOMNIA 01/30/19 08:00 03/01/19 07:59 01/30/19 23:57 Ondansetron HCl (Zofran 4 Mg/2 ml Vial) 4 mg STK-MED ONCE .ROUTE 01/30/19 08:21 01/30/19 08:22 DC Piperacillin Sod/ Tazobactam Sod 3.375 gm/Sodium Chloride 100 ml @ 100 mls/hr Q6H IV 01/30/19 10:00 03/01/19 09:59 01/31/19 09:04 Morphine Sulfate (Morphine Sulfate) 3 mg Q3HR PRN IV PAIN 7 - 10 01/30/19 10:30 03/01/19 10:29 01/31/19 09:16 Enoxaparin Sodium (Lovenox) 40 mg Q24HRS SQ 01/31/19 09:00 03/02/19 08:59 Ibuprofen (Motrin) 600 mg STAT STAT PO 01/30/19 21:20 01/30/19 21:57 DC 01/30/19 22:03 Ibuprofen (Motrin) 800 mg STK-MED ONCE .ROUTE 01/30/19 23:59 01/31/19 00:01 DC Course Sepsis Screening Results: Posi: POSITIVE Sepsis Qualifier/Stage: SEVERE SEPSIS RISK Duration or Total Time Spent w: 1 hr 15 min Vitals & review Data Vital Sign - Last 24 Hours 01/30/19 01/30/19 01/30/19 01/30/19 13:14 17:34 19:45 20:26 Temp 98.9 97.4 Pulse 120 106 102 Resp 20 16 20 B/P (MAP) 144/88 (106) 148/78 (101) Pulse Ox 93 94 93 O2 Delivery Room Air Room Air Nasal Cannula Nasal Canula O2 Flow Rate 2.00 2.00 01/30/19 01/31/19 01/31/19 01/31/19 22:56 00:54 02:28 03:24 Temp 98.1 Pulse 95 Resp 20 20 B/P (MAP) 138/91 (107) Pulse Ox 92 75 75 O2 Delivery Nasal Cannula Nasal Canula Room Air O2 Flow Rate 2.00 2.00 FiO2 21 01/31/19 01/31/19 07:12 08:05 Temp 99.3 Pulse 89 Resp 20 B/P (MAP) 159/78 (105) Pulse Ox 93 O2 Delivery Nasal Cannula Room Air O2 Flow Rate 2.00 Intake and Output 01/30/19 01/30/19 01/31/19 15:00 23:00 07:00 Intake Total 334 ml 362 ml Output Total 1290 ml 850 ml Balance -956 ml -488 ml Laboratory Tests Test 01/29/19 11:00 01/29/19 20:43 01/29/19 20:59 01/29/19 21:45 Prothrombin Time 12.5 SEC Prothrombin Time INR (Non-Therap) 1.2 Activated Partial Thromboplast Time 29.9 SEC Fibrinogen > 500 mg/dL D-Dimer 0.52 mg/L Ammonia < 10 umol/L Total Creatine Kinase 100 U/L Troponin I < 0.02 ng/mL Amylase Level 20 U/L Lipase 84 U/L Hepatitis A IgM Antibody Negative Hepatitis B Surface Antigen Negative Hepatitis B Core IgM Antibody Negative Hepatitis C Antibody <0.1 s/co ratio White Blood Count 15.7 10^3/uL Red Blood Count 5.39 10^6/uL Hemoglobin 15.5 g/dL Hematocrit 46.8 % Mean Corpuscular Volume 86.8 fL Mean Corpuscular Hemoglobin 28.8 pg Mean Corpuscular Hemoglobin Concent 33.1 g/dL Red Cell Distribution Width 13.0 % Platelet Count 208 10^3/uL Mean Platelet Volume 9.7 fL Neutrophils (%) (Auto) 91.1 % Lymphocytes (%) (Auto) 4.4 % Monocytes (%) (Auto) 3.2 % Neutrophils # (Auto) 14.3 10^3/uL Lymphocytes # (Auto) 0.7 10^3/uL Monocytes # (Auto) 0.5 10^3/uL Absolute Immature Granulocyte (auto 0.18 10^3 u/L Immature Granulocytes % 1.20 % Eosinophils % 0.0 % Basophils % 0.1 % Basophils # 0.0 10^3/uL Eosinophil Count 0.0 10^3/uL Sodium Level 132 mmol/L Potassium Level 3.9 mmol/L Chloride Level 97.0 mmol/L Carbon Dioxide Level 28.5 mmol/L Anion Gap 10.4 Blood Urea Nitrogen 18 mg/dL Creatinine 1.55 mg/dL Estimated GFR () 61.4 BUN/Creatinine Ratio 11.0 Glucose Level 156 mg/dL Calcium Level 8.6 mg/dL Total Bilirubin 1.0 mg/dL Aspartate Amino Transf (AST/SGOT) 33 U/L Alanine Aminotransferase (ALT/SGPT) 85 U/L Alkaline Phosphatase 77 U/L Total Protein 7.7 g/dL Albumin 2.9 g/dL Globulin 4.8 Procalcitonin 6.3 ng/mL Differential Total Cells Counted 100 #CELLS Segmented Neutrophils 83 % Band Neutrophils 5 % Lymphocytes 6 % Monocytes 5 % Metamyelocytes 1 % Platelet Estimate ADEQUATE Platelet Morphology NORMAL Blood Morphology Comment NORMAL MORPHOLOGY Urine Collection Type VOID Urine Color DARK YELLOW Urine Appearance CLOUDY Urine Bilirubin NEGATIVE MG/DL Urine Ketones 5 mg/dL Urine Specific [place] 1.020 Urine pH 6 Urine Protein 100 mg/dL Urine Urobilinogen 1.0 Urine Nitrate NEGATIVE Urine Leukocyte Esterase NEGATIVE Urine Blood 50 2+ Urine RBC 0-2 RBC/HPF Urine WBC 2-5 WBC/HPF Urine Squamous Epithelial Cells FEW #/HPF Urine Amorphous Sediment SMALL Urine Bacteria FEW Urine Coarse Granular Casts 0-2 #/LPF Urine Other 1+ MUCOUS #/HPF Urine Glucose 50 Test 01/29/19 22:32 01/30/19 05:55 01/30/19 08:10 01/30/19 10:46 Blood Gas Sample Site LEFT RADIAL ARTERY Blood Gas pH 7.411 Blood Gas PCO2 36.2 mmHg Blood Gas PO2 70.1 mmHg Blood Gas HCO3 22.5 mmol/L Blood Gas Base Excess -1.5 mmol/L Emiliano Test POSITIVE Arterial Blood Oxygen Saturation 94.8 % Deoxyhemoglobin 5.1 % Carboxyhemoglobin 1.9 % Methemoglobin 0.2 % Total Hemoglobin 15.8 % Total Oxygen Concentration 20.6 % Blood Gas Temperature 37 Oxygen Delivery Method (LAB) ROOM AIR FiO2 21 % Bicarbonate 23.6 mmol/L White Blood Count 13.9 10^3/uL Red Blood Count 5.09 10^6/uL Hemoglobin 14.8 g/dL Hematocrit 44.2 % Mean Corpuscular Volume 86.8 fL Mean Corpuscular Hemoglobin 29.1 pg Mean Corpuscular Hemoglobin Concent 33.5 g/dL Red Cell Distribution Width 13.0 % Platelet Count 206 10^3/uL Mean Platelet Volume 10.1 fL Sodium Level 134 mmol/L Potassium Level 3.5 mmol/L Chloride Level 98.0 mmol/L Carbon Dioxide Level 26.4 mmol/L Anion Gap 13.1 Blood Urea Nitrogen 14 mg/dL Creatinine 1.37 mg/dL Estimated GFR () 70.7 BUN/Creatinine Ratio 10.0 Glucose Level 175 mg/dL Calcium Level 8.3 mg/dL Total Bilirubin 0.8 mg/dL Aspartate Amino Transf (AST/SGOT) 28 U/L Alanine Aminotransferase (ALT/SGPT) 70 U/L Alkaline Phosphatase 75 U/L Total Protein 7.6 g/dL Albumin 2.8 g/dL Globulin 4.8 Procalcitonin 5.5 ng/mL Lactic Acid Level 2.4 mmol/L 1.3 mmol/L Test 01/30/19 16:34 01/31/19 05:21 Vancomycin Level Trough 12.6 ug/mL White Blood Count 8.9 10^3/uL Red Blood Count 4.87 10^6/uL Hemoglobin 14.1 g/dL Hematocrit 42.7 % Mean Corpuscular Volume 87.7 fL Mean Corpuscular Hemoglobin 29.0 pg Mean Corpuscular Hemoglobin Concent 33.0 g/dL Red Cell Distribution Width 13.3 % Platelet Count 195 10^3/uL Mean Platelet Volume 10.4 fL Neutrophils (%) (Auto) 83.8 % Lymphocytes (%) (Auto) 8.9 % Monocytes (%) (Auto) 6.5 % Neutrophils # (Auto) 7.5 10^3/uL Lymphocytes # (Auto) 0.8 10^3/uL Monocytes # (Auto) 0.6 10^3/uL Absolute Immature Granulocyte (auto 0.03 10^3 u/L Immature Granulocytes % 0.30 % Eosinophils % 0.4 % Basophils % 0.1 % Basophils # 0.0 10^3/uL Eosinophil Count 0.0 10^3/uL Sodium Level 135 mmol/L Potassium Level 3.6 mmol/L Chloride Level 99.0 mmol/L Carbon Dioxide Level 28.4 mmol/L Anion Gap 11.2 Blood Urea Nitrogen 13 mg/dL Creatinine 1.17 mg/dL Estimated GFR () 84.9 BUN/Creatinine Ratio 11.0 Glucose Level 170 mg/dL Hemoglobin A1c 5.9 % Calcium Level 8.4 mg/dL Total Bilirubin 0.5 mg/dL Aspartate Amino Transf (AST/SGOT) 22 U/L Alanine Aminotransferase (ALT/SGPT) 56 U/L Alkaline Phosphatase 69 U/L Total Protein 7.3 g/dL Albumin 2.3 g/dL Globulin 5.0 Triglycerides Level 552 mg/dL Cholesterol Level 129 mg/dL LDL Cholesterol, Calculated VLDL Cholesterol HDL Cholesterol 8 mg/dL Cholesterol Ratio (LDL/HDL) Current Medications Medications (Trade) Dose Ordered Sig/Orly PRN Reason Start Time Stop Time Status Last Admin Acetaminophen (Tylenol) 650 mg Q6HR PRN FEVER 01/30/19 08:00 03/01/19 07:59 01/30/19 14:31 Acetaminophen/ Hydrocodone Bitart (Coldiron 7.5mg) 1 each Q4HR PRN PAIN 4 - 6 01/30/19 08:00 03/01/19 07:59 01/31/19 07:50 Enoxaparin Sodium (Lovenox) 40 mg Q24HRS 01/31/19 09:00 03/02/19 08:59 Morphine Sulfate (Morphine Sulfate) 3 mg Q3HR PRN PAIN 7 - 10 01/30/19 10:30 03/01/19 10:29 01/31/19 09:16 Pantoprazole Sodium (Protonix) 40 mg DAILY 01/30/19 09:00 03/01/19 08:59 01/31/19 09:03 Piperacillin Sod/ Tazobactam Sod 3.375 gm/Sodium Chloride 100 ml @ 100 mls/hr Q6H 01/30/19 10:00 03/01/19 09:59 01/31/19 09:04 Vancomycin HCl 1 gm/Sodium Chloride 250 ml @ 175 mls/hr Q8H 01/30/19 11:00 03/01/19 10:59 01/31/19 03:42 Zolpidem Tartrate (Ambien) 5 mg HS PRN INSOMNIA 01/30/19 08:00 03/01/19 07:59 01/30/19 23:57 LEVEL 1 SEPSIS INFECTION CRITE: ABX Therapy, Cellulitis LEVEL 2-SIRS (LIST ALL THAT AP: HR>90/min, WBC>[id number] Cardiovascular Evidence: Not Assessed or None Hematologic Evidence: None/Not assessed Hepatic Evidence: None/Not assessed Metabolic Evidence: None/Not assessed Neurological Evidence: None/Not assessed Respiratory Evidence: Need for O2 to keep>90%, None/Not assessed Renal Evidence: None/Not assessed O2 Sat by Pulse Oximetry: 93 Oxygen Flow Rate: 2.00 Assessment/Plan Assessment/Plan Assessment/Plan 1. Severe Sepsis/Cellulitis: Cont IV abx, cx reviewed. Wound care consulted ordered. Leukocytosis resolved. Likely d/c in AM. 2. Hyperglycemia: A1c 5.9. Lifestyle modification recommended. F/U outpatient with PCP for further recs. 3. KARISHMA: resolved, d/c IVF. Recheck metabolic panel in AM. 4. PPx: PPI, Lovenox 5. RITCHIE/Hypoxia: CXR negative. IS ordered. Patient has severe RITCHIE and CPAP of fered but patient did not want to wear mask. He can f/u outpatient for further recs. ILA BARILLAS MD Jan 31, 2019 09:52
[2019-01-31] MEDS: LOPRESSOR PO SCH ×2 (10:00→20:27)
[2019-01-31] MEDS ORDERED: LOPRESSER PO SCH (10:00)
[2019-01-31 12:13] VITALS: BP 122/84
[2019-01-31 17:24] VITALS: BP 122/68
[2019-01-31 19:30] VITALS: BP 154/90
[2019-01-31] MEDS: AMBIEN PO PRN (23:49)
[2019-02-01 01:11] VITALS: BP 139/88
[2019-02-01] MEDS: VANCOMYCIN HCL 1 GM in NS 250ML 250 ML IV SCH ×3 (02:37→20:21)
--- NOTE | 2019-02-01 03:55 | NUR ---
pt called to say that the unna boot on his left leg was saturated and bed was wet. undressed dressing the drainage on the kerlix was green in color. cleaned leg with wound cleanser, wrapped with unna boot, kerlix and coban. notified Dr. Knapp of the drainage and color. stated that he would take a look at it later this morning. no new orders received at this time.
[2019-02-01] MEDS: ZOSYN 3.375 GM 3.375 GM in NS 100ML 100 ML IV SCH ×4 (04:17→22:29)
[2019-02-01 05:18] LABS: BASOPHIL % 0.2 % (0.0-0.2); EOSINOPHIL # 0.1 10^3/uL (0.0-0.2); EOSINOPHIL % 0.7 % (0.0-5.0); LYMPHOCYTES # 1.1 10^3/uL (1.0-4.8); LYMPHOCYTES % 13.9 % (24.0-44.0); MEAN CORP HGB 28.8 pg (26-34); MONOCYTES # 1.2 10^3/uL (0.3-0.8); MONOCYTES % 14.2 % (5.0-12.0); NEUTROPHIL # 5.8 10^3/uL (1.8-7.7); NEUTROPHILS % 70.3 % (41.0-85.0); RED CELL DISTRIBUTION WIDTH 13.3 % (11.5-14.5)
[2019-02-01 05:30] LABS: CALCIUM 8.3 mg/dL (8.4-10.5); CARBON DIOXIDE 27.9 mmol/L (20.0-32)
[2019-02-01 06:10] VITALS: BP 147/89
[2019-02-01] MEDS: NORCO 7.5MG PO PRN ×2 (07:33→18:05)
--- NOTE | 2019-02-01 07:37 | NUR ---
C/O OF PAIN Pt C/O OF "L LEG PAIN AT 8/10 ACHING, BURNING, STABBING" ADMINISTERED NORCO 7.5MG PRN WILL REASSESS THE Pt.Pt WAS NOT FEELING HAPPY STATES IT IS NOT BECAUSE OF PAIN ITS BECAUSE HE DID NOT GET ENOUGH SLEEP WILL EVEN HE GOT MEDICINE FOR SLEEP, WILL NOTIFY DR. GUEVARA.
[2019-02-01 08:28] VITALS: BP 143/55
[2019-02-01] MEDS ORDERED: NS 100ML 100 ML IV ONE (09:57)
[2019-02-01] MEDS: LOPRESSOR PO SCH ×2 (10:05→21:08)
[2019-02-01] MEDS: PROTONIX PO SCH (10:05)
[2019-02-01] MEDS: LOVENOX SQ SCH (10:06)
--- NOTE | 2019-02-01 10:27 | PRM.PN ---
Subjective Subjective Date: Feb 01, 2019 Time: 10:00 Subjective Patient is getting wound care. Taria Boot removed this AM and lesions draining. Pain has improved. Low grade temps the last 24 hours. STAT blood cx ordered, CT Scan LLE ordered and surgical consult. Patient is noncompliant with a mbulation, leg elevation. He refuses CPAP as well. Patient History: Patient reports no known family medical history. VTE VTE Risk Total Score: 2 VTE Risk Score VTE Risk: Score 0-1 = Low Risk (Aggressive mobilization; early ambulation; no VTE prophylaxis required) Score 2: Moderate Risk (Intermittent/Pneumatic Compression Device OR Lovenox/Heparin/Coumadin) Score 3-4: High Risk (Intermittent/Pneumatic Compression Device AND Lovenox/Heparin/Coumadin) Score > or =5: Highest Risk (Intermittent/Pneumatic Compression Device AND Lovenox/Heparin/Coumadin) Review of Systems Allergies: Coded Allergies: No Known Allergies (Unverified , 11/09/13) No Active Prescriptions or Reported Meds Objective Vitals and I/O Vital Sign - Last 24 Hours 01/30/19 01/30/19 01/30/19 01/30/19 13:14 17:34 19:45 20:26 Temp 98.9 97.4 Pulse 120 106 102 Resp 20 16 20 B/P (MAP) 144/88 (106) 148/78 (101) Pulse Ox 93 94 93 O2 Delivery Room Air Room Air Nasal Cannula Nasal Canula O2 Flow Rate 2.00 2.00 01/30/19 01/31/19 01/31/19 01/31/19 22:56 00:54 02:28 03:24 Temp 98.1 Pulse 95 Resp 20 20 B/P (MAP) 138/91 (107) Pulse Ox 92 75 75 O2 Delivery Nasal Cannula Nasal Canula Room Air O2 Flow Rate 2.00 2.00 FiO2 21 01/31/19 01/31/19 07:12 08:05 Temp 99.3 Pulse 89 Resp 20 B/P (MAP) 159/78 (105) Pulse Ox 93 O2 Delivery Nasal Cannula Room Air O2 Flow Rate 2.00 Intake and Output 01/30/19 01/30/19 01/31/19 15:00 23:00 07:00 Intake Total 334 ml 362 ml Output Total 1290 ml 850 ml Balance -956 ml -488 ml General: Alert, Oriented X3, Cooperative HEENT: Atraumatic, PERRLA, EOMI, Mucous membr. moist/pink Neck: Supple, No JVD Lungs: Clear to auscultation, Normal air movement Heart: Normal S1, Normal S2, No murmurs Abdomen: Normal bowel sounds, Soft, No tenderness Extremities: Other (LLE cellulitis from posterior/anterior upper thigh to distal tibia distally. No compartment syndrome. Patient neurovascularly intact.) Skin: Other (Wound is draining more with more blistering. ) Neuro: Normal speech, Strength at 5/5 X4 ext, Normal tone, Sensation intact, C ranial nerves 3-12 NL Psych/Mental Status: Mental status NL, Mood NL All Results(Lab/Rad) Laboratory Tests Test 01/30/19 10:46 01/30/19 16:34 01/31/19 05:21 Lactic Acid Level 1.3 mmol/L Vancomycin Level Trough 12.6 ug/mL White Blood Count 8.9 10^3/uL Red Blood Count 4.87 10^6/uL Hemoglobin 14.1 g/dL Hematocrit 42.7 % Mean Corpuscular Volume 87.7 fL Mean Corpuscular Hemoglobin 29.0 pg Mean Corpuscular Hemoglobin Concent 33.0 g/dL Red Cell Distribution Width 13.3 % Platelet Count 195 10^3/uL Mean Platelet Volume 10.4 fL Neutrophils (%) (Auto) 83.8 % Lymphocytes (%) (Auto) 8.9 % Monocytes (%) (Auto) 6.5 % Neutrophils # (Auto) 7.5 10^3/uL Lymphocytes # (Auto) 0.8 10^3/uL Monocytes # (Auto) 0.6 10^3/uL Absolute Immature Granulocyte (auto 0.03 10^3 u/L Immature Granulocytes % 0.30 % Eosinophils % 0.4 % Basophils % 0.1 % Basophils # 0.0 10^3/uL Eosinophil Count 0.0 10^3/uL Sodium Level 135 mmol/L Potassium Level 3.6 mmol/L Chloride Level 99.0 mmol/L Carbon Dioxide Level 28.4 mmol/L Anion Gap 11.2 Blood Urea Nitrogen 13 mg/dL Creatinine 1.17 mg/dL Estimated GFR () 84.9 BUN/Creatinine Ratio 11.0 Glucose Level 170 mg/dL Hemoglobin A1c 5.9 % Calcium Level 8.4 mg/dL Total Bilirubin 0.5 mg/dL Aspartate Amino Transf (AST/SGOT) 22 U/L Alanine Aminotransferase (ALT/SGPT) 56 U/L Alkaline Phosphatase 69 U/L Total Protein 7.3 g/dL Albumin 2.3 g/dL Globulin 5.0 Triglycerides Level 552 mg/dL Cholesterol Level 129 mg/dL LDL Cholesterol, Calculated VLDL Cholesterol HDL Cholesterol 8 mg/dL Cholesterol Ratio (LDL/HDL) Current Medications Medications (Trade) Dose Ordered Sig/Orly Route PRN Reason Start Time Stop Time Status Last Admin Dose Admin Sodium Chloride 1,000 ml @ 0 mls/hr Q0M ONCE IV 01/29/19 20:30 01/29/19 20:36 DC 01/29/19 20:43 Piperacillin Sod/ Tazobactam Sod 3.375 gm/Sodium Chloride 100 ml @ 100 mls/hr STAT STAT IV 01/29/19 20:29 01/29/19 21:28 DC 01/29/19 20:42 Acetaminophen (Tylenol) 1,000 mg STAT STAT PO 01/29/19 20:36 01/29/19 20:37 DC 01/29/19 20:43 Sodium Chloride 1,000 ml @ ud STK-MED ONCE .ROUTE 01/29/19 20:38 01/29/19 20:39 DC Acetaminophen (Tylenol) 500 mg STK-MED ONCE PO 01/29/19 20:38 01/29/19 20:40 DC Sodium Chloride 50 ml @ ud STK-MED ONCE IV 01/29/19 20:39 01/29/19 20:41 DC Vancomycin HCl 1 gm/Sodium Chloride 250 ml @ 175 mls/hr STAT ONCE IV 01/29/19 22:30 01/30/19 08:39 DC 01/29/19 22:57 Sodium Chloride 1,000 ml @ 0 mls/hr Q0M ONCE IV 01/29/19 22:30 01/30/19 08:39 DC 01/29/19 22:57 Sodium Chloride 250 ml @ ud STK-MED ONCE IV 01/29/19 22:32 01/29/19 22:34 DC Vancomycin HCl 1 ml @ ud STK-MED ONCE .ROUTE 01/29/19 22:33 01/29/19 22:34 DC Vancomycin HCl 1950 mg/Sodium Chloride 100 ml @ 100 mls/hr Q12HR IV 01/29/19 23:00 01/30/19 03:59 DC Piperacillin Sod/ Tazobactam Sod 3.375 gm/Sodium Chloride 100 ml @ 100 mls/hr Q6 IV 01/30/19 00:00 01/30/19 03:59 DC Sodium Chloride 100 ml @ ud STK-MED ONCE IV 01/30/19 03:44 01/30/19 03:46 DC Piperacillin Sod/ Tazobactam Sod 3.375 gm/Sodium Chloride 100 ml @ 100 mls/hr Q6 IV 01/30/19 04:00 01/30/19 10:01 DC 01/30/19 04:00 Vancomycin HCl 1 gm/Sodium Chloride 250 ml @ 175 mls/hr Q8H IV 01/30/19 11:00 03/01/19 10:59 01/31/19 03:42 Enoxaparin Sodium (Lovenox) 100 mg STAT STAT SQ 01/30/19 03:48 01/30/19 08:39 DC 01/30/19 04:10 Morphine Sulfate (Morphine Sulfate) 1 mg Q3HR PRN IV PAIN 4 - 6 01/30/19 06:30 01/30/19 07:44 DC Pantoprazole Sodium (Protonix) 40 mg DAILY PO 01/30/19 09:00 03/01/19 08:59 01/31/19 09:03 Acetaminophen (Tylenol) 650 mg Q6HR PRN PO FEVER 01/30/19 08:00 03/01/19 07:59 01/30/19 14:31 Morphine Sulfate (Morphine Sulfate) 2 mg Q3HR PRN IV PAIN 7 - 10 01/30/19 08:00 01/30/19 10:15 DC 01/30/19 08:26 Acetaminophen/ Hydrocodone Bitart ([place] 7.5mg) 1 each Q4HR PRN PO PAIN 4 - 6 01/30/19 08:00 03/01/19 07:59 01/31/19 07:50 Zolpidem Tartrate (Ambien) 5 mg HS PRN PO INSOMNIA 01/30/19 08:00 03/01/19 07:59 01/30/19 23:57 Ondansetron HCl (Zofran 4 Mg/2 ml Vial) 4 mg STK-MED ONCE .ROUTE 01/30/19 08:21 01/30/19 08:22 DC Piperacillin Sod/ Tazobactam Sod 3.375 gm/Sodium Chloride 100 ml @ 100 mls/hr Q6H IV 01/30/19 10:00 03/01/19 09:59 01/31/19 09:04 Morphine Sulfate (Morphine Sulfate) 3 mg Q3HR PRN IV PAIN 7 - 10 01/30/19 10:30 03/01/19 10:29 01/31/19 09:16 Enoxaparin Sodium (Lovenox) 40 mg Q24HRS SQ 01/31/19 09:00 03/02/19 08:59 Ibuprofen (Motrin) 600 mg STAT STAT PO 01/30/19 21:20 01/30/19 21:57 DC 01/30/19 22:03 Ibuprofen (Motrin) 800 mg STK-MED ONCE .ROUTE 01/30/19 23:59 01/31/19 00:01 DC Course Sepsis Screening Results: Posi: POSITIVE Sepsis Qualifier/Stage: SEVERE SEPSIS RISK Duration or Total Time Spent w: 1 hr 15 min Vitals & review Data Vital Sign - Last 24 Hours 01/30/19 01/30/19 01/30/19 01/30/19 13:14 17:34 19:45 20:26 Temp 98.9 97.4 Pulse 120 106 102 Resp 20 16 20 B/P (MAP) 144/88 (106) 148/78 (101) Pulse Ox 93 94 93 O2 Delivery Room Air Room Air Nasal Cannula Nasal Canula O2 Flow Rate 2.00 2.00 01/30/19 01/31/19 01/31/19 01/31/19 22:56 00:54 02:28 03:24 Temp 98.1 Pulse 95 Resp 20 20 B/P (MAP) 138/91 (107) Pulse Ox 92 75 75 O2 Delivery Nasal Cannula Nasal Canula Room Air O2 Flow Rate 2.00 2.00 FiO2 21 01/31/19 01/31/19 07:12 08:05 Temp 99.3 Pulse 89 Resp 20 B/P (MAP) 159/78 (105) Pulse Ox 93 O2 Delivery Nasal Cannula Room Air O2 Flow Rate 2.00 Intake and Output 01/30/19 01/30/19 01/31/19 15:00 23:00 07:00 Intake Total 334 ml 362 ml Output Total 1290 ml 850 ml Balance -956 ml -488 ml Laboratory Tests Test 01/29/19 11:00 01/29/19 20:43 01/29/19 20:59 01/29/19 21:45 Prothrombin Time 12.5 SEC Prothrombin Time INR (Non-Therap) 1.2 Activated Partial Thromboplast Time 29.9 SEC Fibrinogen > 500 mg/dL D-Dimer 0.52 mg/L Ammonia < 10 umol/L Total Creatine Kinase 100 U/L Troponin I < 0.02 ng/mL Amylase Level 20 U/L Lipase 84 U/L Hepatitis A IgM Antibody Negative Hepatitis B Surface Antigen Negative Hepatitis B Core IgM Antibody Negative Hepatitis C Antibody <0.1 s/co ratio White Blood Count 15.7 10^3/uL Red Blood Count 5.39 10^6/uL Hemoglobin 15.5 g/dL Hematocrit 46.8 % Mean Corpuscular Volume 86.8 fL Mean Corpuscular Hemoglobin 28.8 pg Mean Corpuscular Hemoglobin Concent 33.1 g/dL Red Cell Distribution Width 13.0 % Platelet Count 208 10^3/uL Mean Platelet Volume 9.7 fL Neutrophils (%) (Auto) 91.1 % Lymphocytes (%) (Auto) 4.4 % Monocytes (%) (Auto) 3.2 % Neutrophils # (Auto) 14.3 10^3/uL Lymphocytes # (Auto) 0.7 10^3/uL Monocytes # (Auto) 0.5 10^3/uL Absolute Immature Granulocyte (auto 0.18 10^3 u/L Immature Granulocytes % 1.20 % Eosinophils % 0.0 % Basophils % 0.1 % Basophils # 0.0 10^3/uL Eosinophil Count 0.0 10^3/uL Sodium Level 132 mmol/L Potassium Level 3.9 mmol/L Chloride Level 97.0 mmol/L Carbon Dioxide Level 28.5 mmol/L Anion Gap 10.4 Blood Urea Nitrogen 18 mg/dL Creatinine 1.55 mg/dL Estimated GFR () 61.4 BUN/Creatinine Ratio 11.0 Glucose Level 156 mg/dL Calcium Level 8.6 mg/dL Total Bilirubin 1.0 mg/dL Aspartate Amino Transf (AST/SGOT) 33 U/L Alanine Aminotransferase (ALT/SGPT) 85 U/L Alkaline Phosphatase 77 U/L Total Protein 7.7 g/dL Albumin 2.9 g/dL Globulin 4.8 Procalcitonin 6.3 ng/mL Differential Total Cells Counted 100 #CELLS Segmented Neutrophils 83 % Band Neutrophils 5 % Lymphocytes 6 % Monocytes 5 % Metamyelocytes 1 % Platelet Estimate ADEQUATE Platelet Morphology NORMAL Blood Morphology Comment NORMAL MORPHOLOGY Urine Collection Type VOID Urine Color DARK YELLOW Urine Appearance CLOUDY Urine Bilirubin NEGATIVE MG/DL Urine Ketones 5 mg/dL Urine Specific [place] 1.020 Urine pH 6 Urine Protein 100 mg/dL Urine Urobilinogen 1.0 Urine Nitrate NEGATIVE Urine Leukocyte Esterase NEGATIVE Urine Blood 50 2+ Urine RBC 0-2 RBC/HPF Urine WBC 2-5 WBC/HPF Urine Squamous Epithelial Cells FEW #/HPF Urine Amorphous Sediment SMALL Urine Bacteria FEW Urine Coarse Granular Casts 0-2 #/LPF Urine Other 1+ MUCOUS #/HPF Urine Glucose 50 Test 01/29/19 22:32 01/30/19 05:55 01/30/19 08:10 01/30/19 10:46 Blood Gas Sample Site LEFT RADIAL ARTERY Blood Gas pH 7.411 Blood Gas PCO2 36.2 mmHg Blood Gas PO2 70.1 mmHg Blood Gas HCO3 22.5 mmol/L Blood Gas Base Excess -1.5 mmol/L Emiliano Test POSITIVE Arterial Blood Oxygen Saturation 94.8 % Deoxyhemoglobin 5.1 % Carboxyhemoglobin 1.9 % Methemoglobin 0.2 % Total Hemoglobin 15.8 % Total Oxygen Concentration 20.6 % Blood Gas Temperature 37 Oxygen Delivery Method (LAB) ROOM AIR FiO2 21 % Bicarbonate 23.6 mmol/L White Blood Count 13.9 10^3/uL Red Blood Count 5.09 10^6/uL Hemoglobin 14.8 g/dL Hematocrit 44.2 % Mean Corpuscular Volume 86.8 fL Mean Corpuscular Hemoglobin 29.1 pg Mean Corpuscular Hemoglobin Concent 33.5 g/dL Red Cell Distribution Width 13.0 % Platelet Count 206 10^3/uL Mean Platelet Volume 10.1 fL Sodium Level 134 mmol/L Potassium Level 3.5 mmol/L Chloride Level 98.0 mmol/L Carbon Dioxide Level 26.4 mmol/L Anion Gap 13.1 Blood Urea Nitrogen 14 mg/dL Creatinine 1.37 mg/dL Estimated GFR () 70.7 BUN/Creatinine Ratio 10.0 Glucose Level 175 mg/dL Calcium Level 8.3 mg/dL Total Bilirubin 0.8 mg/dL Aspartate Amino Transf (AST/SGOT) 28 U/L Alanine Aminotransferase (ALT/SGPT) 70 U/L Alkaline Phosphatase 75 U/L Total Protein 7.6 g/dL Albumin 2.8 g/dL Globulin 4.8 Procalcitonin 5.5 ng/mL Lactic Acid Level 2.4 mmol/L 1.3 mmol/L Test 01/30/19 16:34 01/31/19 05:21 Vancomycin Level Trough 12.6 ug/mL White Blood Count 8.9 10^3/uL Red Blood Count 4.87 10^6/uL Hemoglobin 14.1 g/dL Hematocrit 42.7 % Mean Corpuscular Volume 87.7 fL Mean Corpuscular Hemoglobin 29.0 pg Mean Corpuscular Hemoglobin Concent 33.0 g/dL Red Cell Distribution Width 13.3 % Platelet Count 195 10^3/uL Mean Platelet Volume 10.4 fL Neutrophils (%) (Auto) 83.8 % Lymphocytes (%) (Auto) 8.9 % Monocytes (%) (Auto) 6.5 % Neutrophils # (Auto) 7.5 10^3/uL Lymphocytes # (Auto) 0.8 10^3/uL Monocytes # (Auto) 0.6 10^3/uL Absolute Immature Granulocyte (auto 0.03 10^3 u/L Immature Granulocytes % 0.30 % Eosinophils % 0.4 % Basophils % 0.1 % Basophils # 0.0 10^3/uL Eosinophil Count 0.0 10^3/uL Sodium Level 135 mmol/L Potassium Level 3.6 mmol/L Chloride Level 99.0 mmol/L Carbon Dioxide Level 28.4 mmol/L Anion Gap 11.2 Blood Urea Nitrogen 13 mg/dL Creatinine 1.17 mg/dL Estimated GFR () 84.9 BUN/Creatinine Ratio 11.0 Glucose Level 170 mg/dL Hemoglobin A1c 5.9 % Calcium Level 8.4 mg/dL Total Bilirubin 0.5 mg/dL Aspartate Amino Transf (AST/SGOT) 22 U/L Alanine Aminotransferase (ALT/SGPT) 56 U/L Alkaline Phosphatase 69 U/L Total Protein 7.3 g/dL Albumin 2.3 g/dL Globulin 5.0 Triglycerides Level 552 mg/dL Cholesterol Level 129 mg/dL LDL Cholesterol, Calculated VLDL Cholesterol HDL Cholesterol 8 mg/dL Cholesterol Ratio (LDL/HDL) Current Medications Medications (Trade) Dose Ordered Sig/Orly PRN Reason Start Time Stop Time Status Last Admin Acetaminophen (Tylenol) 650 mg Q6HR PRN FEVER 01/30/19 08:00 03/01/19 07:59 01/30/19 14:31 Acetaminophen/ Hydrocodone Bitart ([place] 7.5mg) 1 each Q4HR PRN PAIN 4 - 6 01/30/19 08:00 03/01/19 07:59 01/31/19 07:50 Enoxaparin Sodium (Lovenox) 40 mg Q24HRS 01/31/19 09:00 03/02/19 08:59 Morphine Sulfate (Morphine Sulfate) 3 mg Q3HR PRN PAIN 7 - 10 01/30/19 10:30 03/01/19 10:29 01/31/19 09:16 Pantoprazole Sodium (Protonix) 40 mg DAILY 01/30/19 09:00 03/01/19 08:59 01/31/19 09:03 Piperacillin Sod/ Tazobactam Sod 3.375 gm/Sodium Chloride 100 ml @ 100 mls/hr Q6H 01/30/19 10:00 03/01/19 09:59 01/31/19 09:04 Vancomycin HCl 1 gm/Sodium Chloride 250 ml @ 175 mls/hr Q8H 01/30/19 11:00 03/01/19 10:59 01/31/19 03:42 Zolpidem Tartrate (Ambien) 5 mg HS PRN INSOMNIA 01/30/19 08:00 03/01/19 07:59 01/30/19 23:57 LEVEL 1 SEPSIS INFECTION CRITE: ABX Therapy, Cellulitis LEVEL 2-SIRS (LIST ALL THAT AP: HR>90/min, WBC>[id number] Cardiovascular Evidence: Not Assessed or None Hematologic Evidence: None/Not assessed Hepatic Evidence: None/Not assessed Metabolic Evidence: None/Not assessed Neurological Evidence: None/Not assessed Respiratory Evidence: Need for O2 to keep>90%, None/Not assessed Renal Evidence: None/Not assessed O2 Sat by Pulse Oximetry: 89 Oxygen Flow Rate: 2.00 Assessment/Plan Assessment/Plan Assessment/Plan 1. Severe Sepsis/Cellulitis: Cont IV abx, blood cx negative. Wound care has seen patient and placed orders. Wound draining increased and patient having low grade temps with tachycardic episodes. Blood cx repeated x [address] LLE repeated. Cont IVF. Surgery consulted to look at lesion. No concern for SJS or TEN currently. 2. Hyperglycemia: A1c 5.9. Lifestyle modification recommended. F/U outpatient with PCP for further recs. 3. KARISHMA: resolved, d/c IVF. Patient having repeat CT with contrast today. will recheck metabolic panel in AM. Restart IVF. 4. PPx: PPI, Lovenox 5. RITCHIE/Hypoxia: cont IS, patient is not compliant with CPAP. ILA BARILLAS MD Feb 01, 2019 10:27
[2019-02-01] MEDS ORDERED: NS 500ML 500 ML IV ONE (10:30)
--- NOTE | 2019-02-01 11:38 | DIREP ---
PROCEDURE:CT LOWER EXTREMITY-LT W/CONTRAST COMPARISON:None. INDICATIONS:LLE cellulitis/sepsis TECHNIQUE:After obtaining the patient's consent, multi-planar CT images of the left lower extremity were created with non-ionic intravenous contrast. Sagittal and coronal reconstructions were obtained. The study was reviewed on abdominal, lung, liver and bone windows. FINDINGS: BONES:No acute fracture or cortical destruction is seen. No bony erosions are identified. JOINTS:Mild narrowing of the medial joint space of the left knee. DJD also seen in both the hips. SOFT TISSUES:Enlarged lymph nodes are identified in the left inguinal region. Extensive infiltration of the subcutaneous fat of the distal thigh, the calf and the region of the 4th and the ankle. No compartmental syndrome is seen. No soft tissue hematoma is identified. On the narrow windows, no obvious evidence for DVT is seen. Please note that the resolution of the veins is diminished SP bowl into the distal calf. No DVT is seen in the pelvis. OTHER:Negative. CONCLUSION:Extensive cellulitis identified in the distal thigh, calf and around the ankle and the left foot. No evidence for a hematoma or compartment syndrome is seen. Multiple enlarged lymph nodes in the left inguinal region, question post inflammatory. No free air is seen in the soft tissues to suggest infection by gas producing bacteria. Dictated by: Parag Benoit MD on 02/01/2019 at 11:28 AM
[2019-02-01 11:56] VITALS: BP 114/79
[2019-02-01] MEDS: LACTATED RINGERS 1,000 ML IV SCH ×2 (13:48→23:46)
[2019-02-01 17:13] VITALS: BP 152/98
[2019-02-01 20:01] VITALS: BP 158/94
[2019-02-01] MEDS: TYLENOL PO PRN (21:08)
[2019-02-01] MEDS: AMBIEN PO PRN (23:46)
--- NOTE | 2019-02-01 23:49 | CNH ---
DATE OF CONSULTATION: 02/01/2019 CHIEF COMPLAINT: Cellulitis, left leg. HISTORY OF PRESENT ILLNESS: This is a 38-year-old male who reports to me prior to his admission early in the morning the day before he was stretching in bed and felt a pop in his groin. He denies any injury or any trauma, any penetration. Later that day, he presented to the Emergency Department, was evaluated for groin issues including CT scan of the abdomen and pelvis and chest. He had no signs of inflammation or problems at that time. He just had discomfort. He went home, became worse, more severe. He came back later, was evaluated with laboratory studies and CAT scan. He had noticeable inflammatory changes. At the time of his repeat evaluation, his white count is 15.7, hemoglobin 15.5, platelet count 208. Chemistry during that evaluation showed BUN of 18, creatinine 1.55. Blood gas showed pH 7.411. He was diagnosed with cellulitis, started on IV antibiotics, admitted to the floor. He had initial procalcitonin of 6.3. He was discontinued on IV antibiotics and subsequently his white count is improved today to 8.2. However, he continues to have low-grade fevers. There was concern for deeper infection, underlying issues. Surgical evaluation was requested. At the time of my assessment, the patient feels as though he has not improved, although clearly based on his labs he has. He notices more erythema and inflammation of the lower extremity. After gentle discussion, it became obvious that he has not been that compliant with use of his CPAP or with ambulating. However, his pain appears to be controlled. He seems to be more informed regarding the seriousness of his situation and the findings for today's CAT scan are discussed. PAST MEDICAL HISTORY: Previously, he reports none. He has been told he is prediabetic during this admission. He has no hypertension. PAST SURGICAL HISTORY: Denies. ALLERGIES: No known drug allergies. HOME MEDICATIONS: He denies. SOCIAL HISTORY: He denies tobacco. He reports occasional alcohol use. He denies illicits to me though apparently he stated to the nurse during the admission process that he possibly has used marijuana recently. Occupation: He works in a [employer] industry, but has not been climbing, significantly overweight. FAMILY HISTORY: Mother is living at age 74. She has a history of hypertension. No diabetes, is otherwise healthy. Father is unknown. REVIEW OF SYSTEMS: SEASONAL ALLERGIES: Admits to occasional runny nose or cough. ENDOCRINE: He has no previous diabetes or thyroid disease. CARDIOVASCULAR: No chest pain, trouble breathing, though he does report he has some respiratory changes with anxiety. NEUROLOGIC: He denies any previous loss of consciousness or seizures. GENITOURINARY: He denies any dysuria. He reports he had one episode of hematuria during the ER evaluation, and typically at home, he has 2-3 episodes a night of nocturia. PHYSICAL EXAMINATION: GENERAL: Alert and oriented, appropriate, 38-year-old male in no acute distress. BMI per chart is 44.2. VITAL SIGNS: Last temperature is 98.5, pulse 91, respiratory rate of 18, blood pressure 114/79. HEENT: Normocephalic, atraumatic. Sledge mucous membranes. NECK: Supple and soft. Trachea is midline. No JVD or thyromegaly. HEART: Has a regular rate and rhythm anteriorly. LUNGS: Clear to auscultation bilaterally anteriorly. ABDOMEN: Bowel sounds are positive, soft. He has no abdominal tenderness. EXTREMITIES: Show positive radial pulses bilaterally. Left lower extremity, the groin and inguinal area was evaluated. He has no erythema proximal to the fold. There is a line of demarcation marked with a marker by the nurses. The erythema appears to recess distally to the previously marked spot. He has no tenderness in the inguinal region. He does have tenderness in the left thigh anteriorly and medially. He has tenderness around his knee. He has tenderness in the left lower extremity distally. He has positive dorsal pedal pulses bilaterally. On the medial aspect of the left lower extremity, he has two separate areas with significant blisters aside from the ones that have already busted. LABORATORY STUDIES: Today show white count 8.2, hemoglobin 13.7, platelet count 227. Chemistry today shows BUN of 14, creatinine 1.03. His AST is 40. His albumin is 2.3. Triglycerides yesterday noted to be 552. Hemoglobin A1c is 5.9. His repeat procalcitonin from 2 days ago was 5.5. IMAGING STUDIES: He has had a lower extremity CT with contrast today, shows no evidence of hematoma or compartment syndrome. There are enlarged lymph nodes in the groin and there was no free air consistent with gas producing infection. He has extensive cellulitis noted. He has an ultrasound from a few days ago that shows no DVT, but it was incomplete. He had a lower extremity CT on 01/29/2019 that shows subcutaneous edema and skin thickening compatible with cellulitis. Microbiology has no growth in any of his cultures so far. SURGICAL ASSESSMENT: 1. Extensive cellulitis of the left lower extremity. 2. Hyperglycemia without diagnosis of diabetes. 3. Elevated AST. 4. Morbid obesity, BMI of 44.2. PLAN: 1. The patient is seen and examined. Chart is reviewed. 2. I agree with the appropriate efforts being made by the hospitalist including aggressive IV medications. The patient is on GI and DVT prophylaxes and should be discontinued. He is advised to increase his IV fluids because of the possibility of renal impairment with the meds. 3. I agree with the aggressive wound care provided by the nursing wound care service including supportive wraps. Today, while I evaluated the patient, I opened 2 different blisters with his permission and collected fluids for cultures and they were sent to laboratory. Mick García DO DR: RACHEL/ignacio JOB# [id number] CC: Wolfgang Knapp M.D.
[2019-02-02 00:04] VITALS: BP 138/73
[2019-02-02] MEDS: VANCOMYCIN HCL 1 GM in NS 250ML 250 ML IV SCH ×3 (02:12→22:02)
[2019-02-02] MEDS: ZOSYN 3.375 GM 3.375 GM in NS 100ML 100 ML IV SCH ×3 (04:36→15:44)
[2019-02-02 05:03] VITALS: BP 148/89
[2019-02-02 05:04] LABS: BASOPHIL % 0.6 % (0.0-0.2); EOSINOPHIL # 0.2 10^3/uL (0.0-0.2); EOSINOPHIL % 2.3 % (0.0-5.0); LYMPHOCYTES # 1.4 10^3/uL (1.0-4.8); LYMPHOCYTES % 19.4 % (24.0-44.0); MEAN CORP HGB 29.2 pg (26-34); MONOCYTES # 1.2 10^3/uL (0.3-0.8); MONOCYTES % 16.1 % (5.0-12.0); NEUTROPHIL # 4.3 10^3/uL (1.8-7.7); NEUTROPHILS % 59.7 % (41.0-85.0); RED CELL DISTRIBUTION WIDTH 13.4 % (11.5-14.5)
[2019-02-02 05:19] LABS: CALCIUM 8.2 mg/dL (8.4-10.5); CARBON DIOXIDE 29.7 mmol/L (20.0-32)
[2019-02-02] MEDS: LACTATED RINGERS 1,000 ML IV SCH ×2 (06:30→09:06)
[2019-02-02 09:04] VITALS: BP 162/100
[2019-02-02] MEDS: LOVENOX SQ SCH (09:06)
[2019-02-02] MEDS: LOPRESSOR PO SCH ×2 (09:07→22:03)
[2019-02-02] MEDS: PROTONIX PO SCH (09:07)
[2019-02-02 12:15] VITALS: BP 159/88
[2019-02-02] MEDS: LASIX IV SCH ×2 (12:27→22:03)
[2019-02-02] MEDS: KLOR-CON 10 PO SCH ×2 (12:27→22:03)
--- NOTE | 2019-02-02 14:40 | NUR ---
DISCHARGE UPDATE/REFERRAL DR. HAGAN/ERAN REQUESTED PATIENT TO HAVE OUTPATIENT WOUND CARE SET UP IN [place]. THE PLAN IS TO DISCHARGE ON January, AND PATIENT TRAVEL HOME TO [place], [place]. HE WILL REQUIRE OUTPATIENT WOUND CARE, AT THIS TIME HE HAS AN UNNA BOOT DRESSING TO THE LEFT LOWER EXTREMITY. WE HAVE SET UP FOR HIM TO RECEIVE WOUND CARE/UNNA BOOT DRESSING CHANGES AT [facility] [phone] FAX: [phone]. HIS FIRST WOUND CARE APPOINTMENT CAN BE ANYTIME [phone] WEDNESDAY-WEDNESDAY FOR THE WOUND CARE NURSE OR ANYTIME WEDNESDAY-WEDNESDAY AND ONE OF THE FACILITY NURSES CAN CHANGE THE DRESSING. OUR PHYSICIAN WILL WRITE FOR THE INITIAL WOUND CARE ORDERS, BUT PATIENT WILL REQUIRE TO HAVE A LOCAL PHYSICIAN TO FOLLOW AFTER INITIAL ORDER. PATIENT HAS A FOLLOW UP SCHEDULED WITH DR. LAZARO ROMERO ON January, @ [address] [facility] [phone] FAX: [phone]. CM NOTIFIED PATIENT, , RADHA SANTACRUZ RN OF ABOVE INFORMATION.
[2019-02-02] MEDS ORDERED: VANCOMYCIN HCL 1.5 GM in NS 250ML 300 ML IV SCH (16:00)
--- NOTE | 2019-02-02 17:03 | NUR ---
ambulation ambulating in the luu
[2019-02-02] MEDS: NORCO 7.5MG PO PRN (17:16)
[2019-02-02 17:37] VITALS: BP 142/87
--- NOTE | 2019-02-02 21:37 | PNH ---
DATE: ROOM: [facility]. SUBJECTIVE: The patient does not show any signs of improvement in his cellulitis. In fact, his left lower extremity is extremely erythematous and also is producing bullae filled with fluids. The patient seems to be a pretty anxious and he drinks a large amount of fluids daily. PHYSICAL EXAMINATION: VITAL SIGNS: Temperature 99.3, pulse 89, respirations 19, blood pressure 159/88, O2 sat 96% on room air. CARDIOVASCULAR: Regular rhythm. CHEST: Clear. ABDOMEN: Large with no hepatosplenomegaly or ascites could be appreciated. EXTREMITIES: No cyanosis. Positive edema in both lower extremities, but it is severe edema on the left side on his left lower extremity with significant redness and tenderness. LABORATORY WORK: CBC: White count 7.3, hemoglobin 13.5, hematocrit 40.2, platelet 281. Chemistry: Sodium 139, potassium 3.2, chloride 100, CO2 29.7. The glucose 132, AST 45, ALT 80, albumin 2.4. DIAGNOSES: 1. Severe sepsis/cellulitis improved at the level of sepsis with better controlled with the IV antibiotics; however, the cellulitis is still the same and without any improvement. 2. Severe edema in the lower extremities. 3. Morbid obesity. MANAGEMENT: I am going to continue the IV Zosyn and vancomycin. However, I am going to also give the patient IV Lasix and combination with some fluid restriction and we will replace his potassium and we will repeat the lab and evaluating him in the morning. DANE HAGAN MD DR: ALEXANDRU/ignacio JOB# [id number]
[2019-02-02 21:44] VITALS: BP 154/91
[2019-02-02] MEDS ORDERED: KLOR-CON 10 PO ONE (22:03)
[2019-02-02] MEDS: VANCOMYCIN HCL 1.5 GM in NS 250ML 300 ML IV SCH (22:04)
[2019-02-03] VITALS: BP 144/80
[2019-02-03] MEDS: ZOSYN 3.375 GM 3.375 GM in NS 100ML 100 ML IV SCH ×4 (00:03→17:11)
[2019-02-03] MEDS: NORCO 7.5MG PO PRN ×2 (00:18→09:24)
--- NOTE | 2019-02-03 02:00 | PNH ---
DATE: SUBJECTIVE: A 38-year-old male in no acute distress. He has multiple complaints, but his pain is improving in his leg and he has been ambulating. He is able to shower today. OBJECTIVE: VITAL SIGNS: Last temperature is 99.3, his T-max since yesterday appears to be 100.0; last heart rate 89; respiratory rate of 19; blood pressure 159/88. EXTREMITIES: Left lower extremity has continued cellulitic changes with erythema and some blistering on the distal lower extremity. He has a good pulse. Though he appears clinically improved, on appearance does not appear significantly improved; however, his pain and tenderness on the medial aspect of the left thigh and left calf are remarkably improved. LABORATORY DATA: Today show white count 7.3, hemoglobin 13.5, platelet count 281. Chemistry shows BUN of 11, creatinine of 1.07. Albumin is 2.4. ASSESSMENT: 1. Cellulitis, left lower extremity. 2. History of sleep apnea. 3. Obesity. PLAN: 1. The patient is seen and examined. The chart was reviewed. The patient was allowed to shower, his dressing was removed. He is redressed from the toes to the knee with Xeroform gauze over the blisters, Kerlix and an Arnulfo bandage. 2. Continue medical management per primary service. Surgery will follow as needed. Mick García DO DR: RACHEL/ignacio JOB# [id number] CC: DANE HAGAN MD
[2019-02-03] MEDS: VANCOMYCIN HCL 1.5 GM in NS 250ML 300 ML IV SCH ×4 (03:00→21:15)
[2019-02-03 06:07] LABS: CALCIUM 8.8 mg/dL (8.4-10.5); CARBON DIOXIDE 32.4 mmol/L (20.0-32)
[2019-02-03] MEDS: LACTATED RINGERS 1,000 ML IV SCH ×3 (06:30→17:54)
[2019-02-03 07:48] VITALS: BP 143/92
[2019-02-03] MEDS: PROTONIX PO SCH (09:02)
[2019-02-03] MEDS: LOVENOX SQ SCH (09:03)
[2019-02-03] MEDS: LOPRESSOR PO SCH ×2 (09:03→21:14)
[2019-02-03] MEDS: LASIX IV SCH ×2 (09:14→21:23)
[2019-02-03] MEDS ORDERED: NS 100ML 100 ML IV ONE ×2 (09:14→09:16)
[2019-02-03] MEDS: KLOR-CON 10 PO SCH ×2 (09:21→21:14)
[2019-02-03 12:56] VITALS: BP 141/74
--- NOTE | 2019-02-03 16:30 | NUR ---
PHYSICIANS ORDERS CM FAXED ORDERS TO [facility] @ [phone]. FAX CONFIRMATION RECEIVED.
[2019-02-03] MEDS: MORPHINE SULFATE IV PRN (17:13)
--- NOTE | 2019-02-03 20:39 | NUR ---
FLUID RESTRICTION PATIENT NON COMPLIANT WITH FLUID RESTRICTION, FAMILY BRINGS FOOD AND DRINK INTO ROOM
[2019-02-03 23:25] VITALS: BP 144/86
--- NOTE | 2019-02-03 23:31 | PNH ---
DATE: SUBJECTIVE: A 38-year-old male in no acute distress. He is seen in his room this morning with nursing. He has been tolerating diet. His pain is improved. He feels like he is doing better. OBJECTIVE: VITAL SIGNS: Last temperature is 99.3, pulse 77, respiratory rate 18, blood pressure 141/74. EXTREMITIES: Left thigh has less swelling and erythema. There is some blistering distally on the posterior aspect. The left lower extremity has decreased swelling, but there were discontinued changes consistent with injury. Though the blister is not increasing in size, they are not significantly improved. LABORATORY DATA: Today show white count 7.3, hemoglobin 13.5, platelet count 281. Chemistry shows BUN of 13, creatinine of 1.04. ASSESSMENT: 1. Severe cellulitis, left lower extremity. 2. Morbid obesity, BMI of 44. 3. Sleep apnea. PLAN: 1. The patient is seen and examined, the chart is reviewed. 2. Dressing is changed in left lower extremity with the wound care nurse. 3. Continue wound care and medical management per primary service. Mick García DO DR: RACHEL/ignacio JOB# [id number]
--- NOTE | 2019-02-04 00:19 | PNH ---
DATE: LOCATION: The patient in room #335. SUBJECTIVE: The patient is doing much better with decreased edema in both extremities, especially in the left lower extremity and decrease in the redness of the lower extremities. PHYSICAL EXAMINATION: VITAL SIGNS: Temperature 99.3, pulse 77, respirations 18, blood pressure 141/74, O2 sat 94% on room air. CARDIOVASCULAR: Regular rhythm. CHEST: Clear. ABDOMEN: Soft. EXTREMITIES: No cyanosis, clubbing and decreased edema in lower extremities, especially in the right lower extremity, the left lower extremity where the cellulitis is; also noticed a significant decrease in the edema. LABORATORY DATA: CBC: White count 7.3, hemoglobin 13.5, hematocrit 40.2, platelet 281. Sodium 138, potassium 4.2, chloride 102, CO2 32.4, anion gap 7.8, BUN 13, creatinine 1.04. Glucose 120. Thyroid function test within normal limits. DIAGNOSES: 1. Severe sepsis/cellulitis. Sepsis is resolved and cellulitis is improving. Continue IV antibiotics. 2. Severe edema in the lower extremities, improved greatly. Continue fluid restriction and diuresis. 3. Morbid obesity. MANAGEMENT: We will continue with present care and will repeat lab in the a.m. and consider discharging the patient to be started to follow up in [place] after he is discharged from our facility for wound care and to continue his antibiotics. DANE HAGAN MD DR: ALEXANDRU/ignacio JOB# [id number]
[2019-02-04] MEDS: ZOSYN 3.375 GM 3.375 GM in NS 100ML 100 ML IV SCH ×2 (00:24→05:01)
[2019-02-04] MEDS: MORPHINE SULFATE IV PRN (00:32)
[2019-02-04 05:46] VITALS: BP 163/79
[2019-02-04] MEDS: VANCOMYCIN HCL 1.5 GM in NS 250ML 300 ML IV SCH (06:16)
[2019-02-04] MEDS: KLOR-CON 10 PO SCH (08:28)
[2019-02-04] MEDS: PROTONIX PO SCH (08:28)
[2019-02-04] MEDS: LOVENOX SQ SCH (08:29)
[2019-02-04] MEDS: LOPRESSOR PO SCH (08:29)
[2019-02-04] MEDS: LACTATED RINGERS 1,000 ML IV SCH (08:30)
[2019-02-04] MEDS: LASIX IV SCH (09:00)
[2019-02-04] MEDS ORDERED: METO50TA6 PO (09:31)
[2019-02-04] MEDS ORDERED: ACET-685 PO (09:31)
[2019-02-04] MEDS ORDERED: AMOX1TAB63 PO (09:31)
[2019-02-04] MEDS ORDERED: LINE600T12 PO (09:31)
--- NOTE | 2019-02-04 09:57 | NUR ---
lasix IV INFILTRATED. IV DC'D PER ASEPTIC TECHNIQUE. CATHETER INTACT. NO S/S OF INFECTION NOTED. DR NOTIFIED. NO NEW ORDERS TO RESTART IV, PATIENT DISCHARGE ORDERS RECEIVED.
[2019-02-04 10:30] VITALS: BP 163/79
--- NOTE | 2019-02-04 10:30 | NUR ---
DISCHARGE EDUCATION SESSION PROVIDED TO PATIENT IN THE FORUM OF VERBAL AND WRITTEN MATERIAL. EDUCATION SESSION INCLUDED FOLLOW UP APPOINTMENTS, WHEN TO SEEK IMMEDIATE MEDICAL CARE, NEW MEDICATIONS, WOUND CARE, WELL OTHER DISCHARGE INSTRUCTIONS. NO QUESTIONS OR CONCERNS PRESENTED AT THIS TIME. PATIENT VERBALIZED UNDERSTANDING. PATIENT LEFT UNIT VIA W/C NO SIGNS OR SYMPTOMS OF DISTRESS NOTED. PATIENT LEFT VIA PRIVATE AUTO WITH . RELINQUISHED CARE AT THIS TIME.
--- NOTE | 2019-02-04 16:17 | DSH ---
DATE OF DISCHARGE: 02/04/2019 DISCHARGE DIAGNOSES: 1. Severe sepsis/cellulitis. 2. Severe edema in the lower extremities. 3. Morbid obesity. 4. Prediabetes type 2. 5. Hypertension. The patient is going to be discharged accompanied by his family to go to [place] to follow up with his doctor in [place] for wound care as well as continuation and supervision of his antibiotics. HOSPITAL COURSE: This is a 38-year-old male who was visiting from another state from [place] his family. The patient in fact has developed severe cellulitis in the left lower extremity. Apparently, he was not paying too much attention to this and came to the ER, like 3 days after the symptoms established. The patient was found to have severe cellulitis to the left lower extremity associated with significant edema. The patient was admitted to our hospital for IV antibiotics. The patient's also initial evaluation was consistent with sepsis, which responded nicely to the protocol and the broad-spectrum IV antibiotic was used. The patient gradually did well. Cultures did not grow any specific organism. He had a surgical consult and wound care consult and the patient also was given diuresis and placed on fluid restriction in order to reduce the edema in the left lower extremity, which has greatly improved, but the patient's cellulitis will still require prolonged use of antibiotic and continuous wound care. The patient today is stable, no complaints. PHYSICAL EXAMINATION: VITAL SIGNS: Temperature 99.3, pulse 86, respirations 18, blood pressure 156/105, O2 sat 96% on room air. HEART: Regular rhythm. CHEST: Clear. ABDOMEN: Soft. EXTREMITIES: No cyanosis, clubbing or edema. DISCHARGE MEDICATIONS: The patient is going to be discharged home with the following medications: 1. Tylenol No. 3 use p.r.n. every 4 hours for pain. 2. Augmentin 875 mg 1 tablet b.i.d. for 14 days. 3. Zyvox 600 mg p.o. b.i.d. for 14 days. 4. Metoprolol 50 mg p.o. b.i.d. The patient will follow up with his primary care physician in [place] and he will receive also wound care, our catalytic case operator arranged for the patient to have this as soon as he returns home today. DANE HAGAN MD DR: ALEXANDRU/ignacio JOB# [id number]
== END 2019-02-04 10:25 | disposition home or self-care (01) | DRG 871 ==
LOC: ER 19:51 → EDBEDREQ 01-30 01:48 → EDBEDREQDT 01-30 01:51 → MS 01-30 01:51 → EDBEDREQTM 01-30 01:51 → MS 02-01 13:49
PROVIDERS: ADMIT Family Medicine; ATTEND Family Medicine
DX: A41.9 Sepsis, unspecified organism (principal); N17.0 Acute kidney failure with tubular necrosis; L03.116 Cellulitis of left lower limb; Z68.41 Body mass index [BMI] 40.0-44.9, adult; E66.01 Morbid (severe) obesity due to excess calories; G47.00 Insomnia, unspecified; G47.10 Hypersomnia, unspecified; G47.33 Obstructive sleep apnea (adult) (pediatric); I10 Essential (primary) hypertension; R09.02 Hypoxemia; R65.20 Severe sepsis without septic shock; R73.9 Hyperglycemia, unspecified; R73.03 Prediabetes; Z82.49 Family history of ischemic heart disease and other diseases of the circulatory system; Z91.19 Patient's noncompliance with other medical treatment and regimen
CPT/HCPCS: 36415; 36600; 71045; 71046; 73700; 73701; 80048; 80053; 80061; 80074; 80202; 81000; 82140; 82150; 82550; 82803; 83036; 83605; 83690; 83735; 84145; 84436; 84439; 84443; 84484; 85025; 85027; 85370; 85379; 85610; 85730; 87040; 87070; 87086; 93005; 99285; G0378; J1650; J1940; J2270; J2405; J2543; J3370; J3490; J7030; J7040; J7050; J7120; Q9965; 93971; A9270